=== PATIENT | female | born 1955 | race Two or more races ===

== ENCOUNTER 2025-05-21 10:00 | Outpatient (AMB) | payer MEDICARE, SELFPAY ==
--- NOTE | 2025-05-21 10:39 | MHC.OFFVIS ---
Vital Signs 05/21/25 10:43 Height 5 ft 4 in Weight 317 lb 6 oz BMI 54.5 BP 106/72 Blood Pressure Location Rt brachial Position Sitting Pulse 96 Pulse Source Pulse Oximeter Pulse Oximetry (%) 94 Oxygen Delivery Method Room Air Intake Visit Reasons: Obstructive sleep apnea Allergies No Known Allergies Allergy (Verified 05/21/25 10:48) HPI HPI Obstructive sleep apnea: Details: Macy is a pleasant 69-year-old female with underlying obstructive sleep apnea, pulmonary hypertension and HTN. She was referred by PCP for management of obstructive sleep apnea. She was diagnosed over 10 years ago and has been using a CPAP machine from [employer] since then, benefitting from use. Her last sleep study was in 2013, which revealed moderate SONJA with nocturnal hypoxemia. She recently received a new machine about two years ago and has been working effectivelyx. She has a history of pulmonary hypertension, although her last echocardiogram in 2021 showed normal pressures. She is under the care of Dr. Correa at [facility] but has not had a recent appointment. 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 [facility] Social History (Updated 05/21/25 @ 10:47 by Bhavana Dominguez [facility]) Patient Tobacco Use Status: Never used Tobacco Review of Systems Const Denies chills, Denies excessive sweating, Denies fever(s), Denies headache(s) and Denies night sweats Eyes Denies dry eyes, Denies irritation and Denies itchy eyes ENT Reports Normal hearing present, Denies headache(s), Denies nasal congestion, Denies nasal discharge, Denies post nasal drip and Denies sore throat Card Denies chest pain, Denies chest pain at rest, Denies chest pain with activity, Denies claudication, Denies leg edema, Denies dyspnea, Denies dyspnea on exertion, Denies orthopnea and Denies paroxysmal nocturnal dyspnea Resp Denies chest congestion, Denies cough, Denies excessive phlegm production, Denies pain on inspiration, Denies pain with cough, Denies dyspnea, Denies dyspnea on exertion, Denies stridor and Denies wheezing Musc Denies myalgias Neuro Reports Normal hearing present and Denies headache(s) Endo Denies excessive sweating Ambrosio/Lymph Denies lymphadenopathy Aller/Immun Denies itchy eyes, Denies seasonal rhinorrhea and Denies wheezing Physical Exam Vital Signs: Last Vital Signs Pulse 96 05/21/25 10:43 BP 106/72 05/21/25 10:43 Pulse Ox 94 05/21/25 10:43 Oxygen Delivery Method Room Air 05/21/25 10:43 BMI result Body Mass Index 54.5 Const General: cooperative, healthy appearing, comfortable, no acute distress, well developed and alert Nutritional Appearance: obese Orientation/consciousness: patient oriented x3 Limitations: no limitations HEENT Head: Yes normal to inspection, Yes normocephalic and Yes atraumatic Ears: hearing grossly normal bilaterally and external ears normal Eyes General: appearance normal, both eyes and all related structures Eyelids: Yes eyelids normal Sclerae: sclerae normal EOM: EOMs intact bilaterally Neck Neck: Yes normal visual inspection and Yes no lymphadenopathy Lymphatic: no lymphadenopathy noted Chest Chest palpation & inspection: normal inspection of the chest Resp Effort & Inspection: normal respiratory effort, able to speak in complete sentences, no audible wheezes, no cough, no stridor, not tachypneic, no tripod positioning and no use of accessory muscles Auscultation: clear to auscultation bilaterally Cardio Jugular venous distension: no JVD Rate: regular rate Rhythm: regular rhythm Skin Other: warm, dry General skin exam: no rashes or lesions noted Neuro General: patient oriented x3 Cranial nerves: Yes Normal hearing present Cognition (Neuro): normal cognition Gait exam (Neuro): Normal gait present Extrem General: Yes normal to inspection, Yes capillary refill normal, Yes no clubbing, cyanosis or edema and Yes no pedal edema Psych Appearance: grossly normal and well kempt Speech and movement: Normal speech and movement present and Clear speech present Affect: normal affect Attitude: cooperative Thought process: Normal thought process present Thought content: Normal thought content present Insight: Good insight present (Psych) Judgement: Good judgement present (Psych) Assessment & Plan Assessment & Plan (1) Obstructive sleep apnea: Code(s): G47.33 - Obstructive sleep apnea (adult) (pediatric) Category: Medical Plan Macy presents for management of SONJA and importance of continuing CPAP therapy. She has been benefitting from use with CPAP pressure 11 cmH20. If she has symptoms suggestive of SONJA may need to send for inlab titration study to ensure optimal pressures. At this time, will send supply order to [facility] to obtain compliance report. For the question of pulmonary hypertension, the patient is advised to follow up with cardiology for an updated echocardiogram and will obtain results when available. The patient is encouraged to contact Dr. Correa for a cardiology appointment. In regards to possible RAD, the patient should continue using albuterol as needed and monitor symptoms. Will hold off on PFT at this time. All questions were answered and patient is in agreement of plan. Will follow up in 3 months or sooner if needed. Coding Level of Care Code New Pt Level 3 (41615) Diagnoses Obstructive sleep apnea G47.33
[2025-05-21 10:43] VITALS: BP 106/72; PULSE 96; O2SAT 94; BMI 54.5
--- OUTSIDE RECORDS SUMMARY | 2025-05-21 11:02 | XMS_ITS | Clinical Summary ---
Author Organization [address] Address [address] [place] [id number] Phone Care Team Providers Care Geophysical Data Technician Name Role Phone Santiago Love Primary Care Provider [phone] Allergies Active Allergy Reactions Criticality Noted Date Comments Other 06/16/2020 Seasonal Allergies Medications furosemide (LASIX) 40 mg tablet Take 1 Tablet by mouth See Admin Instructions. 3 Active medical supply, miscellaneous (MISCELLANEOUS MEDICAL SUPPLY MISC) CPAP Historical (HISTORICAL CPAP) 3 Active ascorbic acid (VITAMIN C) 250 mg tablet Take 250 mg by mouth. 2 Active cyanocobalamin (VITAMIN B-12) 1,000 mcg tablet Take 1,000 mcg by mouth. 2 Active folic acid (FOLVITE) 1 mg tablet Take 1 mg by mouth. 2 Active fluticasone propionate (FLONASE) 50 mcg/actuation nasal spray 1 [place] by Nasal route daily. 2 Active meclizine (ANTIVERT) 25 mg tablet Take 1 tablet by mouth as needed. Active levothyroxine (SYNTHROID, LEVOTHROID) 50 mcg tablet Take 1 Tablet by mouth daily for 360 days. 4 06/27/20 25 Active cholecalciferol (VITAMIN D-3) 25 mcg (1,000 unit) tablet Take 1 Tablet by mouth daily. 4 Active albuterol HFA (PROAIR HFA ; PROVENTIL HFA ; VENTOLIN HFA) 90 mcg/actuation inhaler Inhale 2 puffs by mouth every 4 (four) hours if needed for wheezing or shortness of breath. 6.7 g 5 Active loratadine (CLARITIN) 10 mg tablet Take 1 tablet (10 mg total) by mouth 1 (one) time each day. 90 tablet 3 5 Active sertraline (ZOLOFT) 100 mg tablet Take 1 tablet (100 mg total) by mouth 1 (one) time each day. 30 each 5 5 Active Active Problems Problem Noted Date Diagnosed Date Morbid obesity with BMI of 5 0.0-59.9, adult ([facility] V24, [facility] V28) 07/08/2024 Osteopenia 04/01/2022 Depression with anxiety 03/11/2020 Assessment & Plan (03/14/2025 4:56 PM EDT): Orders: Ambulatory referral to Pulmonology; Future Will increase Zoloft t 100 mg daily. Discussed side effects Osteoarthritis of knees, bilateral 08/20/2019 Prediabetes 12/15/2018 Assessment & Plan (03/14/2025 4:56 PM EDT): Orders: Hemoglobin A1c; Future Subclinical hypothyroidism 12/15/2018 Assessment & Plan (03/14/2025 4:56 PM EDT): Orders: Thyroid stimulating hormone with reflex to free t4 and free t3; Future Continue levothyroxine 50 mcg daily Hyperlipidemia 02/03/2017 Overview (08/23/2024): Total cholesterol 218, LDL cholesterol 116, 11/25/2016. Assessment & Plan (03/14/2025 4:56 PM EDT): Orders: Lipid panel with reflex to direct LDL; Future Not on statin medication Tinnitus 12/26/2014 Vitamin B12 deficiency 12/26/2014 Assessment & Plan (03/14/2025 4:56 PM EDT): Orders: Vitamin B12; Future Currently on supplement Fibromyalgia 09/26/2014 Assessment & Plan (03/14/2025 4:56 PM EDT): She does complain of upper and lower extremity pain and weakness. She is not interested in gabapentin, Lyrica at this moment Pulmonary hypertension ([facility] V24, [facility] V28 ) 08/09/2014 Overview (08/23/2024): Last Assessment & Plan: Followed by Dr. Pickering with [facility]. Continue Lasix at current dose. Continue CPAP therapy. Assessment & Plan (03/14/2025 4:56 PM EDT): Pain in joint, multiple sites 07/08/2014 Sleep apnea syndrome 07/08/2014 Tricuspid valve insufficiency 07/08/2014 Overview (08/23/2024): 3+ on spring (Dr. Correa) Last Assessment & Plan: Following up with Dr. Montenegro, she states she had already met with him not too long ago, completing some test and will be reevaluated by him. She has no new or concerning symptoms. Today she is feeling a little under the weather as mentioned above may be fighting some mild fevers which she will take at home COVID test for. Encounters Date Type Department Care Team Description 05/07/2025 10:00 AM EDT Ancillary Procedure Pulmonol - [place] [address] [place] [phone] Wheezing (Primary Dx) 04/08/2025 Telephone Adult Medicine [facility] [address] [place] [phone] Santiago Love PA 03/28/2025 Telephone [facility] [address] [place] [address] Santiago Love PA Medical Records 03/28/2025 Telephone [facility] [address] [place] [phone] Santiago Love PA 03/22/2025 Telephone Adult Medicine [facility] [address] [place] [phone] Santiago Love PA 03/14/2025 11:00 AM EDT Office Visit Adult Medicine [address] [phone] Iveth Izquierdo PA Encounter for initial annual wellness visit (AWV) in Medicare patient (Primary Dx); Breast cancer screening by mammogram; Subclinical hypothyroidism; Mixed hyperlipidemia; Prediabetes; Vitamin B12 deficiency; Vitamin D deficiency; History of iron deficiency; Hypomagnesemia; Pulmonary hypertension (CMS/HCC V24, CMS/HCC V28); SONJA (obstructive sleep apnea); Anxiety and depression; Fibromyalgia; Wheezing 03/11/2025 Telephone Adult Medicine [address] [phone] Santiago Love PA MyChart Appointment from Last 3 Months Immunizations Name Administration Dates Next Due Influenza Quadravalent, MDCK , 0.5ml, with preservative (Flucelvax) 6mo and older 08/22/2017 Influenza trivalent, 0.5mL ( Fluzone High-dose) 65yo and older 01/17/2024 Influenza trivalent, with pr eservative (Fluzone; Afluria) 6mo and older 08/16/2020 Pneumococcal conjugate 13 va lent (Prevnar 13, PCV13) 2mo and older 04/06/2022 Pneumococcal conjugate 20 va lent (Prevnar 20, PCV 20) 2mo and older 01/17/2024 Tdap Tetanus diptheria acell ular pertussis (Boostrix; Adacel) 7yo and older 06/20/2019 Zoster Live 09/07/2017 Surgical History Surgery Date Site/Laterality Comments GASTRIC BYPASS 11/21/2004 PROCEDURE: ME GASTRIC RSTCV W/BYP W/SM INT RCNSTJ LIMIT ABSRPJ; COMMENT: gastric bypass SECTION 11/21/1981 PROCEDURE: HISTORICAL APPENDECTOMY 11/21/1979 PROCEDURE: HISTORICAL APPENDECTOMY OTHER SURGICAL HISTORY PROCEDURE: ME DILATION & CURETTAGE DX&/THER NONOBSTETRIC; COMMENT: x 2 BREAST LUMPECTOMY PROCEDURE: HISTORICAL BREAST LUMPECTOMY; COMMENT: left breast (1990s); benign CHOLECYSTECTOMY PROCEDURE: HISTORICAL CHOLECYSTECTOMY COLONOSCOPY 02/16/2024 PROCEDURE: HISTORICAL COLONOSCOPY; COMMENT: adryanlu 1 polyp 5 yrs Medical History Medical History Date Comments Heart murmur DX:Heart murmur; COMMENT: [facility] Vitamin deficiency DX:Vitamin de ficiency Morbid obesity with BMI of 5 0.0-59.9, adult ([facility] V24, CMS/HCC V28) 07/08/2014 DX:Morbid obesity wit h BMI of 50.0-59.9, adult ([facility]) Tricuspid valve regurgitation 07/08/2014 DX :Tricuspid valve regurgitation; COMMENT: 3+ on echo Sleep apnea syndrome 07/08/2014 DX:Sleep ap rakesh syndrome Family History Medical History Relation Name Comments Diabetes Brother x2 brothers Other: Other Father Diabetes Maternal Grandmother Arthritis Mother Glaucoma, hyper tension Other: Other Mother , 2015 Other: some type of cancer Uncle Relation Name Status Comments Brother Alive x 4 Daughter Alive Father Maternal Grandfather Maternal Grandmother Mother Paternal Grandfather Paternal Grandmother Sister Alive x 2 Uncle Social History Tobacco Use Types Packs/Day Years Used Date Smoking Tobacco: Never Smokeless Tobacco: Never Tobacco Cessation:Counseling Given: Not Answered Alcohol Use Standard Drinks/Week Comments No 0 (1 standard drink = 0.6 oz pur e alcohol) Housing Instability Answer Date Recorde d Are you worried that in the next 2 months you may not have stable housing? No 03/14/2025 Food Access & Nutrition Answer Date Rec orded Do you have access to a vari ety of food including fruits and vegetables? Yes 03/14/2025 Access to Healthcare Answer Date Record ed Within the last 3 months, ho w many times did you visit the emergency department for your medical care? 0 03/14/2025 Health Literacy Answer Date Recorded How often do you need to hav e someone help you when you read instructions, pamphlets, or other written material from your doctor or pharmacy? Never 03/14/2025 Caregiver: How often do you need to have someone help you when you read instructions, pamphlets, or other written material from your doctor or pharmacy? Not on file 03/14/2025 Financial Risk Answer Date Recorded How hard is it for you to pa y for the very basics like food, housing, medical care, and air conditioning / heating? Not very hard 03/14/2025 Transportation Answer Date Recorded Has the lack of transportati on kept you from meetings, work, or from getting things needed for daily living? No Has the lack of transportati on kept you from medical appointments or from getting medications? No 03/14/2025 Social Isolation Answer Date Recorded How often do you feel lonely or isolated from th ose around you? Never 03/14/2025 Food Risk Answer Date Recorded Within the past 12 months we worried whether our food would run out before we got money to buy more. Never true 03/14/2025 Within the past 12 months th e food we bought just didn't last and we didn't have money to get more. Never true 03/14/2025 Dependent Care Answer Date Recorded Do you need help finding or paying for care for your loved ones. For example, children's attendant or elderly care for an older adult? No 03/14/2025 Education Answer Date Recorded Do you think completing more education or training, like finishing a GED, going to college, or learning a trade, would be helpful for you? No 03/14/2025 Employment and Income Answer Date Recor ded During the last four weeks, have you been actively looking for work? No 03/14/2025 Living Situation Answer Date Recorded What is your living situation? 0 03/14/2025 Comments Unknown Sex and Gender Information Value Date Recorded Sex Assigned at Female 11/28/2024 1:02 PM EST Legal Sex Female 11:36 PM EST Gender Identity Female 11/28/2024 1:02 PM EST Sexual Orientation Not on file Obstetrics History Last Filed Vital Signs Vital Sign Reading Time Taken Comments Blood Pressure 130/70 03/14/2025 10:53 AM EDT Pulse 94 03/14/2025 11:45 AM EDT Temperature 35.2 C (95.4 F) 03/14/2025 10:53 AM EDT Respiratory Rate 15 03/14/2025 10:53 AM EDT Oxygen Saturation 97% 03/14/2025 10:53 AM EDT Inhaled Oxygen Concentration - - Weight 144 kg (316 lb 6.4 oz) 03/14/2025 10:53 A M EDT Height 162.6 cm (5' 4 ) 03/14/2025 10:53 AM EDT Body Mass Index 54.31 03/14/2025 10:53 AM EDT Plan of Treatment Upcoming Encounters Date Type Department Care Team (Late st Contact Info) Description 06/13/2025 9:30 AM EDT Office Visit Adult Medicine [facility] [address] [place], [place] [phone] Iveth Izquierdo PA [address] [place], [place] Health Maintenance Due Date Last Done Comments Breast Cancer Screening 1955 COVID-19 Vaccine ( season) 2025 09/08/2024, 09/17/2022, 11/12/2021, Additional history exists Hypertension/CHF/CAD Annual BMP Blood Test 07/02/2025 07/02/2024, 07/02/2024 Influenza Vaccine (Season Ended) 2025 01/17/2024, 09/17/2022, 11/12/2021, Additional history exists Depression Screening 03/14/2026 03/14/2025 Falls Risk Assessment 03/14/2026 03/14/2025, 025 Medicare Annual Wellness Visit 03/14/2026 03/14/2025 Social Influencers of Health Screening 03/14/2026 03/14/2025 Colorectal Cancer Screening: Colonoscopy 02/15/2029 02/16/2024 DTaP,Tdap,and Td Vaccines (2 - Td or Tdap) 06/20/2029 06/20/2019 Cholesterol Screening (Lipid Panel) 07/02/2029 07/02/2024, 07/02/2024 Osteoporosis Screening (Bone Density Screening) 04/01/2032 04/01/2022 Hepatitis C Screening Completed 08/14/2014 Zoster Vaccines Completed 04/17/2023, 10/22, 09/07/2017 Pneumococcal Vaccine: 50+ Years Completed 01/17/2024, 04/06/2022 RSV Immunization Adult Patients Completed 09/08/2024 HIB Vaccines Aged Out No longer eligi ble based on patient's age to complete this topic HPV Vaccines Aged Out No longer eligi ble based on patient's age to complete this topic Hepatitis A Vaccines Aged Out No long er eligible based on patient's age to complete this topic Hepatitis B Vaccines Aged Out No long er eligible based on patient's age to complete this topic IPV Vaccines Aged Out No longer eligi ble based on patient's age to complete this topic MMR Vaccines Aged Out No longer eligi ble based on patient's age to complete this topic Meningococcal ACWY Vaccine Aged Out N o longer eligible based on patient's age to complete this topic Meningococcal B Vaccine Aged Out No l onger eligible based on patient's age to complete this topic RSV Immunization Patients Under 20 months Aged Out No longer eligible based on patient's age to complete this topic Varicella Vaccines Aged Out No longer eligible based on patient's age to complete this topic Procedures Procedure Name Priority Date/Time Associated Diagnosis Comments PULMONARY FUNCTION TESTING Routine 05/07/2025 10:21 AM EDT Wheezing ANNUAL BMP BLOOD TEST Routine 07/02/2024 LIPID PANEL Routine 07/02/2024 COLONOSCOPY Routine 02/16/2024 DXA BONE DENSITY STUDY 1+ SITS AXIAL SKEL Routine 04/01/2022 2:36 PM EDT Encounter for screening for osteoporosis HEPATITIS C SCREENING Routine 08/14/2014 from Last 3 Months or Most Recently Relevant to Health Maintenance Results * Pulmonary function testing: Spirometry with Bronchodilator, Carbon Monoxide Diffusing Capacity, Helium Dilution Lung Volumes, Bronchial Challenge with Methacholine (05/07/2025 10:21 AM EDT) Impressions Soniya Quintero MD - 05/07/2025 10:21 AM EDT 05/07/2025 Spirometry FEV1 is 96% predicted, FVC is 84% predicted, FEV1/FVC ratio is normal, no improvement in FEV1 post bronchodilators Lung volume TLC is 94% predicted, RV/TLC is 105% predicted Diffusion capacity DLCO is 82% predicted, DLCO/VA is 115% predicted Summary, this is a normal PFT Iveth RILEY PFT ORDERABLES Final Result * Annual BMP Blood Test (07/02/2024) [facility] Annual BMP Blood Test Abstracted Result [facility] Historical Provider HEALTH MAINTENANCE Final Result * Lipid panel (07/02/2024) [facility] LDL/HDL Ratio 3 0 - 4 Triglycerides 107 0 - 150 mg/dL Cholesterol 189 0 - 200 mg/dL HDL 75 >=40 mg/dL LDL Cholesterol 93 0 - 100 mg/dL Blood Venous blood specimen / Unknown Result [facility] Historical Provider LAB BLOOD ORDERABLES Carlita l Result * Colonoscopy (02/16/2024) [facility] Colonoscopy No interpretation , Abstracted Comment:Repeat in 5 years. Anatomical Region Laterality Modality Other Result [facility] Provider HEALTH MAINTENANCE Final Result * DXA BONE DENSITY STUDY 1+ SITS AXIAL SKEL (04/01/2022 2:36 PM EDT) Anatomical Region Laterality Modality Bone Densitometr y 02/03/2022 12:2 2 PM EDT Narrative 04/01/2022 4:53 PM EDT BONE DENSITY Lumbar Spine T-score is -0.3 (SD relative to 20-29 y/o adult) Z-score is +1.6 (SD relative to age matched peers) This is normal by criteria defined by the WHO. Left Hip T-score is -1.2 Z-score is +0.1 This is consistent with osteopenia by criteria defined by the WHO. . Impression: Based on the World Health Organization criteria, Macy Castillo should be classified as having osteopenia. This patient has a 7% risk of major osteoporotic fracture and a 0.5% risk of hip fracture over the next 10 years. (World Health Organization Fracture Risk Assessment) [facility] Department of Internal Medicine recommends using National Osteoporosis Foundation (NOF) guidelines in treatment decisions related to osteoporosis. NOF guidelines suggest considering treatment for postmenopausal women and men aged 50 or older presenting with the following: History of hip or vertebral fracture. T-score less than or equal to -2.5 (DXA) at the femoral neck, total hip, or spine, after appropriate evaluation to exclude secondary causes. Low bone mass (T-score between -1.0 and -2.5 at the femoral neck or spine) AND a 10-year probability of a hip fracture greater than or equal to 3% OR a 10-year probability of a major osteoporosis-related fracture greater than or equal to 20% based on the [place]-adapted WHO algorithm Please note that all treatment decisions require clinical judgment and consideration of individual patient factors, including patient preferences, co-morbidities, previous drug use, risk factors not captured in the FRAX model (e.g., frailty, falls, vitamin D deficiency, increased bone turnover, interval significant decline in bone density) and possible under- or over-estimation of fracture risk by FRAX. Procedure Note Soni Curtis MD - 11/09/2022 BONE DENSITY Lumbar Spine T-score is -0.3 (SD relative to 20-29 y/o adult) Z-score is +1.6 (SD relative to age matched peers) This is normal by criteria defined by the WHO. Left Hip T-score is -1.2 Z-score is +0.1 This is consistent with osteopenia by criteria defined by the WHO. . Impression: Based on the World Health Organization criteria, Macy motabe classified as having osteopenia. This patient has a 7% risk of majorosteoporotic fracture and a 0.5% risk of hip fracture over the next 10years. (World Health Organization Fracture Risk Assessment) [facility] Department of Internal Medicine recommendsusing National Osteoporosis Foundation (NOF) guidelines in treatmentdecisions related to osteoporosis. NOF guidelines suggest consideringtreatment for postmenopausal women and men aged 50 or older presentingwith the following: History of hip or vertebral fracture. T-score less than or equal to -2.5 (DXA) at the femoral neck, total hip,or spine, after appropriate evaluation to exclude secondary causes. Low bone mass (T-score between -1.0 and -2.5 at the femoral neck or spine)AND a 10-year probability of a hip fracture greater than or equal to 3% ORa 10-year probability of a major osteoporosis-related fracture greaterthan or equal to 20% based on the [place]-adapted WHO algorithm Please note that all treatment decisions require clinical judgment andconsideration of individual patient factors, including patientpreferences, co-morbidities, previous drug use, risk factors not capturedin the FRAX model (e.g., frailty, falls, vitamin D deficiency, increasedbone turnover, interval significant decline in bone density) and possibleunder- or over-estimation of fracture risk by FRAX. Santiago RILEY IMG DXA PROCEDURES Final Result * Hepatitis C Screening (08/14/2014) [facility] Hepatitis C Screening Abstracted Historical Provider MD HEALTH MAINTENANCE Final Result from Last 3 Months or Most Recently Relevant to Health Maintenance Insurance [employer] MEDICARE Care Teams Geophysical Data Technician Relationship Specialty Start Date End Date Santiago Love PA [address] [place] [address] PCP - General Internal Medicine 05/20/21
== END 2025-05-21 11:17 | disposition home or self-care (01) ==
LOC: HO.HPSW 10:01
PROVIDERS: PCP Physician Assistant Medical; Visit Provider Nurse Practitioner Family
DX: G47.33 Obstructive sleep apnea (adult) (pediatric) (principal)
CPT/HCPCS: 99203

== ENCOUNTER → 2025-05-21 10:00 | Outpatient (BNVA) | payer MEDICARE, SELFPAY | PROVIDERS: PCP Physician Assistant Medical; Visit Provider Nurse Practitioner Family | DX: G47.33 Obstructive sleep apnea (adult) (pediatric) (principal); E66.9 Obesity, unspecified; Z99.89 Dependence on other enabling machines and devices | CPT/HCPCS: 99202 ==

== ENCOUNTER 2025-07-26 09:52 | Outpatient (AMB) | payer MEDICARE, SELFPAY ==
[2025-07-26 10:08] VITALS: BP 110/68; PULSE 99; O2SAT 93; BMI 54.8
--- NOTE | 2025-07-26 10:08 | MHC.OFFVIS ---
Vital Signs 07/26/25 10:08 Height 5 ft 4 in Weight 319 lb 4 oz BMI 54.8 BP 110/68 Blood Pressure Location Rt radial Position Sitting Pulse 99 Pulse Source Pulse Oximeter Pulse Oximetry (%) 93 Oxygen Delivery Method Room Air Intake Visit Reasons: Obstructive sleep apnea Allergies No Known Allergies Allergy (Verified 07/26/25 10:11) HPI HPI Obstructive sleep apnea: Details: Macy is a pleasant 70-year-old female with underlying obstructive sleep apnea, pulmonary hypertension and HTN. She was initially referred by PCP for management of obstructive sleep apnea. She was diagnosed over 10 years ago and has been using a CPAP machine from [facility] since then, reports current machine is about 2-3 years old. Her last sleep study was in 2013, which revealed moderate SONJA with nocturnal hypoxemia. She continues to report significant daytime fatigue despite consistent use of CPAP questioning appropriate pressures. She has a history of pulmonary hypertension, although her last echocardiogram in 2021 showed normal pressures. At this time she reports good control of respiratory symptoms using albuterol infrequently however does report intermittent dyspnea on exertion. She reports prior h/o possible RAD with PFT performed this year at [facility]. No report available. [facility] Social History Patient Tobacco Use Status: Never used Tobacco Review of Systems Const Denies chills, Denies excessive sweating, Denies fever(s), Denies headache(s) and Denies night sweats Eyes Denies dry eyes, Denies irritation and Denies itchy eyes ENT Reports Normal hearing present, Denies headache(s), Denies nasal congestion, Denies nasal discharge, Denies post nasal drip and Denies sore throat Card Denies chest pain, Denies chest pain at rest, Denies chest pain with activity, Denies claudication, Denies leg edema, Denies orthopnea and Denies paroxysmal nocturnal dyspnea Resp Denies chest congestion, Denies cough, Denies excessive phlegm production, Denies pain on inspiration, Denies pain with cough, Denies stridor and Denies wheezing Musc Denies myalgias Neuro Reports Normal hearing present and Denies headache(s) Endo Denies excessive sweating Ambrosio/Lymph Denies lymphadenopathy Aller/Immun Denies itchy eyes, Denies seasonal rhinorrhea and Denies wheezing Physical Exam Vital Signs: Last Vital Signs Pulse 99 07/26/25 10:08 BP 110/68 07/26/25 10:08 Pulse Ox 93 07/26/25 10:08 Oxygen Delivery Method Room Air 07/26/25 10:08 BMI result Body Mass Index 54.8 Const General: cooperative, healthy appearing, comfortable, no acute distress, well developed and alert Nutritional Appearance: obese Orientation/consciousness: patient oriented x3 Limitations: no limitations HEENT Head: Yes normal to inspection, Yes normocephalic and Yes atraumatic Ears: hearing grossly normal bilaterally and external ears normal Eyes General: appearance normal, both eyes and all related structures Eyelids: Yes eyelids normal Sclerae: sclerae normal EOM: EOMs intact bilaterally Neck Neck: Yes normal visual inspection and Yes no lymphadenopathy Lymphatic: no lymphadenopathy noted Chest Chest palpation & inspection: normal inspection of the chest Resp Other: diminished lung sounds Effort & Inspection: normal respiratory effort, able to speak in complete sentences, no audible wheezes, no cough, no stridor, not tachypneic, no tripod positioning and no use of accessory muscles Cardio Jugular venous distension: no JVD Rate: regular rate Rhythm: regular rhythm Skin Other: warm, dry General skin exam: no rashes or lesions noted Neuro General: patient oriented x3 Cranial nerves: Yes Normal hearing present Cognition (Neuro): normal cognition Gait exam (Neuro): Normal gait present Extrem General: Yes normal to inspection, Yes capillary refill normal, Yes no clubbing, cyanosis or edema and Yes no pedal edema Psych Appearance: grossly normal and well kempt Speech and movement: Normal speech and movement present and Clear speech present Affect: normal affect Attitude: cooperative Thought process: Normal thought process present Thought content: Normal thought content present Insight: Good insight present (Psych) Judgement: Good judgement present (Psych) Assessment & Plan Assessment & Plan (1) Obstructive sleep apnea: Code(s): G47.33 - Obstructive sleep apnea (adult) (pediatric) Category: Medical (2) Dyspnea on exertion: Code(s): R06.09 - Other forms of dyspnea Category: Medical (3) Daytime somnolence: Code(s): R40.0 - Somnolence Category: Medical Plan Macy presents for management of SONJA and discussed importance of continuing CPAP therapy. She previously reported benefit from CPAP use however has more recently noted increased daytime fatigue. Will send for inlab study with the plan for titration to ensure optimal pressures. Will reach out to [employer] to obtain access to CPAP. Will send for CXR for ongoing dyspnea and obtain prior PFT reportedly performed at [facility] this year. All questions were answered and patient is in agreement of plan. Will follow up in 3 months or sooner if needed. Orders: Orders XR chest 2V Today R06.09 - Other forms of dyspnea RT PSG in-lab sleep study Today R40.0 - Somnolence Coding Level of Care Code Est Pt Level 4 (83633) Diagnoses Obstructive sleep apnea G47.33 Dyspnea on exertion R06.09 Daytime somnolence R40.0
--- OUTSIDE RECORDS SUMMARY | 2025-07-26 10:38 | XMS_ITS | Clinical Summary ---
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 03/30/20 23 Active medical supply, miscellaneous (MISCELLANEOUS MEDICAL SUPPLY MISC) CPAP Historical (HISTORICAL CPAP) 03/30/20 23 Active ascorbic acid (VITAMIN C) 250 mg tablet Take 250 mg by mouth. 03/24/20 22 Active cyanocobalamin (VITAMIN B-12) 1,000 mcg tablet Take 1,000 mcg by mouth. 03/24/20 22 Active folic acid (FOLVITE) 1 mg tablet Take 1 mg by mouth. 03/24/20 22 Active fluticasone propionate (FLONASE) 50 mcg/actuation nasal spray 1 [place] by Nasal route daily. 04/06/20 22 Active meclizine (ANTIVERT) 25 mg tablet Take 1 tablet by mouth as needed. Active cholecalciferol (VITAMIN D-3) 25 mcg (1,000 unit) tablet Take 1 Tablet by mouth daily. 07/02/20 24 Active albuterol HFA (PROAIR HFA ; PROVENTIL HFA ; VENTOLIN HFA) 90 mcg/actuation inhaler Inhale 2 puffs by mouth every 4 (four) hours if needed for wheezing or shortness of breath. 6.7 g 03/14/20 25 Active loratadine (CLARITIN) 10 mg tablet Take 1 tablet (10 mg total) by mouth 1 (one) time each day. 90 tablet 3 03/14/20 25 Active sertraline (ZOLOFT) 100 mg tablet Take 1.5 tablets (150 mg total) by mouth 1 (one) time each day. 135 each 1 06/13/20 25 Active levothyroxine (SYNTHROID, LEVOTHROID) 50 mcg tablet Take 1 tablet (50 mcg total) by mouth 1 (one) time each day before breakfast. Active levothyroxine (SYNTHROID, LEVOTHROID) 50 mcg tablet Take 1 tablet (50 mcg total) by mouth 1 (one) time each day before breakfast. 025 Discontin ued(Dose adjustmen t) levothyroxine (SYNTHROID, LEVOTHROID) 75 mcg tablet Take 1 tablet (75 mcg total) by mouth 1 (one) time each day. 30 each 5 06/27/20 25 025 Discontin ued(Enter ed in Error) Active Problems Problem Noted Date Diagnosed Date Morbid obesity with BMI of 5 0.0-59.9, adult ([facility] V24, [facility] V28) 07/08/2024 Osteopenia 04/01/2022 Depression with anxiety [...] gabapentin, Lyrica at this moment Pulmonary hypertension (CMS/HCC V24, CMS/HCC V28 ) 08/09/2014 Overview (08/23/2024): Last Assessment & Plan: Followed by Dr. Pickering with [facility]. Continue Lasix at current dose. Continue CPAP [...] Encounters Date Type Department Care Team Description 07/17/2025 7:54 AM EDT - 07/17/2025 11:59 PM EDT [facility] [address] [phone] Breast cancer screening by mammogram Discharge Disposition: Home or Self Care 07/10/2025 12:20 PM EDT - 07/10/2025 11:59 PM EDT Hospital Encounter Radiology Department - [address] [phone] Abnormal finding present on diagnostic imaging of uterus Discharge Disposition: Home or Self Care 07/01/2025 1:09 PM EDT - 07/01/2025 11:59 PM EDT Hospital Encounter CT Scan - [address] [phone] Abnormal ultrasound of liver; Diaphragmatic eventration Discharge Disposition: Home or Self Care 06/28/2025 Telephone Adult Medicine [address] [phone] Iveth Izquierdo PA 06/25/2025 8:23 AM EDT - 06/25/2025 11:59 PM EDT Hospital Encounter Radiology Department - [address] [phone] Diaphragmatic eventration Discharge Disposition: Home or Self Care 06/13/2025 9:52 AM EDT - 06/13/2025 11:59 PM EDT Hospital Encounter XRAY - [address] [phone] Wheezing Discharge Disposition: Home or Self Care 06/13/2025 9:30 AM EDT Office Visit Adult Medicine [address] [phone] Iveth Izquierdo PA Mixed hyperlipidemia (Primary Dx); Prediabetes; Subclinical hypothyroidism; Vitamin B12 deficiency; Vitamin D deficiency; History of iron deficiency; Hypomagnesemia; Pulmonary hypertension (CMS/HCC V24, CMS/HCC V28); SONJA (obstructive sleep apnea); Anxiety and depression; Fibromyalgia; Wheezing; Morbid obesity with BMI of 50.0-59.9, adult (CMS/HCC V24, CMS/HCC V28) 05/07/2025 10:00 AM EDT Ancillary Procedure Pulmonolgy - [place] [address] [facility] [address] [place] [address] Wheezing (Primary Dx) from Last 3 Months Immunizations Name Administration [...] Date Site/Laterality Comments GASTRIC BYPASS 11/21/2004 PROCEDURE: LA GASTRIC RSTCV W/BYP W/SM INT RCNSTJ LIMIT ABSRPJ; COMMENT: gastric bypass SECTION 11/21/1981 PROCEDURE: HISTORICAL APPENDECTOMY 11/21/1979 PROCEDURE: HISTORICAL APPENDECTOMY OTHER SURGICAL HISTORY PROCEDURE: LA DILATION & CURETTAGE DX&/THER NONOBSTETRIC; COMMENT: x 2 BREAST LUMPECTOMY PROCEDURE: HISTORICAL BREAST LUMPECTOMY; COMMENT: left breast (); benign CHOLECYSTECTOMY PROCEDURE: HISTORICAL CHOLECYSTECTOMY COLONOSCOPY 02/16/2024 PROCEDURE: HISTORICAL COLONOSCOPY; COMMENT: adryanlu 1 polyp 5 yrs Medical History Medical History Date Comments Heart murmur DX:Heart murmur; COMMENT: [facility] Vitamin deficiency DX:Vitamin de ficiency Morbid obesity with BMI of 5 0.0-59.9, adult ([facility] V24, [facility] V28) 07/08/2014 DX:Morbid obesity wit h BMI of 50.0-59.9, adult ([facility]) Tricuspid valve regurgitation 07/08/2014 DX :Tricuspid valve regurgitation; COMMENT: 3+ on echo Sleep apnea syndrome 07/08/2014 DX:Sleep ap rakesh syndrome Family History Medical History Relation Name Comments Diabetes Brother x2 brothers Other: Other Father Diabetes Maternal Grandmother Arthritis Mother Glaucoma, hyper tension Other: Other Mother , 2016 Other: some type of cancer Uncle Relation [...] care for your loved ones. For example, child and adolescent therapist or elderly care for an older adult? [...] is your living situation? 0 03/14/2025 Comments No Sex and Gender Information Value Date Recorded Sex Assigned at Female 11/28/2024 1:02 PM EST Legal Sex Female 11:36 PM EST Gender Identity Female 11/28/2024 1:02 PM EST Sexual Orientation Not on file Obstetrics History Para Term AB IAB SAB Ectopic Multiple Livin g Live Births 1 Last Filed Vital Signs Vital Sign Reading Time Taken Comments Blood Pressure 118/82 06/13/2025 9:12 AM EDT Pulse 96 06/13/2025 9:12 AM EDT Temperature 36.6 C (97.8 F) 06/13/2025 9:12 AM EDT Respiratory Rate 16 06/13/2025 9:12 AM EDT Oxygen Saturation 97% 06/13/2025 9:12 AM EDT Inhaled Oxygen Concentration - - Weight 144 kg (318 lb) 07/17/2025 7:59 AM EDT Height 162.6 cm (5' 4 ) 07/17/2025 7:59 AM EDT Body Mass Index 54.58 07/17/2025 7:59 AM EDT Plan of Treatment Upcoming Encounters Date Type Department Care Team (Late st Contact Info) Description 12/20/2025 10:30 AM EST Office Visit Adult Medicine [address] [phone] Santiago Love PA [address] [place] [phone] Health Maintenance Due Date Last Done Comments COVID-19 Vaccine ( season) 2025 09/08/2024, 09/17/2022, 11/12/2021, Additional history exists Influenza Vaccine (#1) 2025 , 09/17/2022, 11/12/2021, Additional history exists Falls Risk Assessment 03/14/2026 03/14/2025, 025 Medicare Annual Wellness Visit 03/14/2026 03/14/2025 Social Influencers of Health Screening 03/14/2026 03/14/2025 Hypertension/CHF/CAD Annual BMP Blood Test 07/10/2026 07/10/2025, 06/28/2025, 06/13/2025, Additional history exists Breast Cancer Screening 07/17/2027 07/17/2025 Colorectal Cancer Screening: Colonoscopy 02/15/2029 02/16/2024 DTaP,Tdap,and Td Vaccines (2 - Td or Tdap) 06/20/2029 06/20/2019 Cholesterol Screening (Lipid Panel) 06/13/2030 06/13/2025, 07/02/2024, 07/02/2024 Osteoporosis Screening (Bone Density Screening) 04/01/2032 04/01/2022 Hepatitis C Screening Completed 08/14/2014 Zoster Vaccines Completed 04/17/2023, 10/22, 09/07/2017 Pneumococcal Vaccine: 50+ Years Completed 01/17/2024, 04/06/2022 RSV Immunization Adult Patients Completed 09/08/2024 Depression Screening Completed 03/14/2025 HIB Vaccines Aged Out No longer eligi [...] Procedure Name Priority Date/Time Associated Diagnosis Comments MG MAMMO DIGITAL SCREENING BILAT Routine 07/17/2025 8:07 AM EDT Breast cancer screening by mammogram BASIC METABOLIC PANEL Routine 07/10/2025 1:20 PM EDT Hypokalemia ALKALINE PHOSPHATASE, ISOENZYMES Routine 07/10/2025 1:20 PM EDT Elevated alkaline phosphatase level PARATHYROID HORMONE INTACT Routine 07/10/2025 1:20 PM EDT Elevated alkaline phosphatase level US PELVIS NON OB COMPLETE W TRANSVAGINAL Routine 07/10/2025 1:11 PM EDT Abnormal finding present on diagnostic imaging of uterus CT ABDOMEN PELVIS W CONTRAST Routine 07/01/2025 1:33 PM EDT Abnormal ultrasound of liver Diaphragmatic eventration THYROID STIMULATING HORMONE WITH REFLEX TO FREE T4 AND FREE T3 Routine 06/28/2025 10:05 AM EDT Subclinical hypothyroidism BASIC METABOLIC PANEL Routine 06/28/2025 10:05 AM EDT Function kidney decreased GAMMA GLUTAMYL TRANSFERASE Routine 06/28/2025 10:05 AM EDT Elevated alkaline phosphatase level US ABDOMEN LIMITED Routine 06/25/2025 8: 42 AM EDT Diaphragmatic eventration TRIIODOTHYRONINE FREE Routine 06/13/2025 10:23 AM EDT Subclinical hypothyroidism FREE THYROXINE WITH REFLEX TO FREE TRIIODOTHYRONINE Routine 06/13/2025 10:23 AM EDT Subclinical hypothyroidism MAGNESIUM Routine 06/13/2025 10:23 AM EDT Hypomagnesemia VITAMIN B12 Routine 06/13/2025 10:23 AM EDT Vitamin B12 deficiency VITAMIN D 25 HYDROXY Routine 06/13/2025 10:23 AM EDT Vitamin D deficiency COMPREHENSIVE METABOLIC PANEL Routine 06/13/2025 10:23 AM EDT Encounter for initial annual wellness visit (AWV) in Medicare patient THYROID STIMULATING HORMONE WITH REFLEX TO FREE T4 AND FREE T3 Routine 06/13/2025 10:23 AM EDT Subclinical hypothyroidism HEMOGLOBIN A1C Routine 06/13/2025 10:23 AM EDT Prediabetes LIPID PANEL WITH REFLEX TO DIRECT LDL Routine 06/13/2025 10:23 AM EDT Mixed hyperlipidemia IRON AND TIBC Routine 06/13/2025 10:23 AM EDT History of iron deficiency XR CHEST 2 VIEWS Routine 06/13/2025 10:0 0 AM EDT Wheezing PULMONARY FUNCTION TESTING Routine 05/07/2025 10:21 AM EDT Wheezing COLONOSCOPY Routine 02/16/2024 DXA BONE DENSITY STUDY 1+ SITS AXIAL SKEL Routine 04/01/2022 2:36 PM EDT Encounter for screening for osteoporosis HEPATITIS C SCREENING Routine 08/14/2014 from Last 3 Months or Most Recently Relevant to Health Maintenance Results * MG Mammo Digital Screening bilat (07/17/2025 8:07 AM EDT) Anatomical Region Laterality Modality Breast Bilateral Mammography 07/18/2025 3:53 PM EDT Impressions 07/18/2025 4:03 PM EDT No mammographic evidence of malignancy. No suspicious interval change. A negative mammogram in the presence of a clinically suspicious palpable abnormality does not preclude the possibility of malignancy or alter the indications for biopsy. ASSESSMENT: BI-RADS 1: NEGATIVE RECOMMENDATION(S): 1: Routine screening mammogram BILATERAL in 1 year. [facility] location[facility] [address], [address] -------- FINAL REPORT -------- Dictated By: Charile Alicea Dictated Date: 07/18/2025 15:53 ET Assigned Physician: Charlie Alicea Reviewed and Electronically Signed By: Charlie Alicea Signed Date: 07/18/2025 16:03 ET Workstation ID: [id number] Transcribed By: Self Edit Transcribed Date: 07/18/2025 15:53 ET Narrative 07/18/2025 4:03 PM EDT EXAM: SCREENING MAMMOGRAPHY, BILATERAL HISTORY: SCREENING. Left breast surgery for reportedly benign process during the . COMPARISON: 04/28/17 TECHNIQUE: Synthesized CC and MLO projections of each breast. Tomosynthesis of each breast in the CC and MLO projections. ADDITIONAL IMAGING: None Computer-aided detection was employed with the Delta ID AI 3-D. TISSUE DENSITY: There are scattered areas of fibroglandular density. (BI-RADS category B) FINDINGS: RIGHT BREAST: No suspicious mass. No suspicious calcification. No distortion. No additional suspicious right breast findings LEFT BREAST: No suspicious mass. No suspicious calcification. No distortion. No additional suspicious left breast findings Procedure Note Charlie Alicea MD - 07/18/2025 EXAM: SCREENING MAMMOGRAPHY, BILATERAL HISTORY: SCREENING. Left breast surgery for reportedly benign processduring the . COMPARISON: 04/28/17 TECHNIQUE: Synthesized CC and MLO projections of each breast.Tomosynthesis of each breast in the CC and MLO projections. ADDITIONAL IMAGING: None Computer-aided detection was employed with the Novel SuperTV ProFound AI 3-D. TISSUE DENSITY: There are scattered areas of fibroglandular density.(BI-RADS category B) FINDINGS: RIGHT BREAST: No suspicious mass. No suspicious calcification. No distortion. Noadditional suspicious right breast findings LEFT BREAST: No suspicious mass. No suspicious calcification. No distortion. Noadditional suspicious left breast findings IMPRESSION: No mammographic evidence of malignancy. No suspicious interval change. A negative mammogram in the presence of a clinically suspicious palpableabnormality does not preclude the possibility of malignancy or alter theindications for biopsy. ASSESSMENT: BI-RADS 1: NEGATIVE RECOMMENDATION(S): 1: Routine screening mammogram BILATERAL in 1 year. [facility] location[facility] [address], [address] -------- FINAL REPORT -------- Dictated By: Charlie Alicea Dictated Date: 07/18/2025 15:53 ET Assigned Physician: Charlie Alicea Reviewed and Electronically Signed By: Charlie Alicea Signed Date: 07/18/2025 16:03 ET Workstation ID: [id number] Transcribed By: Self Edit Transcribed Date: 07/18/2025 15:53 ET us Iveth Timbo [facility] BI PROCEDURES Final Result * (ABNORMAL) Alkaline phosphatase, isoenzymes (07/10/2025 1:20 PM EDT) Alkaline Phosphatase 151 37 - 153 U/L 07/24/2025 10:43 PM EDT [facility] Comment: Test Performed at: [facility] [address] [place] [phone] Millie Antonio MD, PhD, GUERITA Alk Phos Isoenzyme Intestine 0(L) 1 - 24 % 07/24/2025 10:43 PM EDT [facility] Alk Phos Isoenzyme Bone 42 28 - 66 % 07/24/2025 10:43 PM EDT [facility] Alk Phos Isoenzyme Liver 58 25 - 69 % 07/24/2025 10:43 PM EDT [facility] Comment: Increased intestinal alkaline phosphatase can be seen in blood group O and B secretors and after fatty meals. Alk Phos Isoenzyme Placental 0 0 % 07/24/2025 10:43 PM EDT [facility] Comment: Test Performed at: [facility] [address] [place] [phone] Millie Antonio MD, PhD, GUERITA Alk Phos Isoenzyme Macrohepatic TNP 07/24/2025 10:43 PM EDT [facility] Alkaline Phosphatase Isoenzymes Interpretation TNP 07/24/2025 10:43 PM EDT [facility] Blood Venous blood specimen / Unknown Venipuncture / Unknown 07/10/2025 1:20 PM EDT 07/10/2025 1:20 PM EDT us Iveth Izquierdo PA LAB BLOOD ORDERABLES Edited Resu lt - Final [facility] [address] [place] [address] * (ABNORMAL) Parathyroid hormone intact (07/10/2025 1:20 PM EDT) PTH 287.3(H) 18.5 - 88.0 pcg/mL LAB CHEMISTRY METHOD 07/10/2025 6:26 PM EDT [facility] Blood Venous blood specimen / Unknown Venipuncture / Unknown 07/10/2025 1:20 PM EDT 07/10/2025 1:20 PM EDT us Iveth Izquierdo PA LAB BLOOD ORDERABLES Final Resul t Performing Organization Address City/[facility]/ZIP Co de Phone Number [facility] [address] [place] [address], [place] [phone] * Basic metabolic panel (07/10/2025 1:20 PM EDT) Only the most recent of2 resultswithin the time period is included. Sodium 137 133 - 145 mmol/L LAB CHEMISTRY METHOD 07/10/2025 5:43 PM EDT [facility] Potassium 3.9 3.5 - 5.5 mmol/L LAB CHEMISTRY METHOD 07/10/2025 5:43 PM EDT [facility] Chloride 104 96 - 110 mmol/L LAB CHEMISTRY METHOD 07/10/2025 5:43 PM EDT [facility] CO2 27 21 - 32 mmol/L LAB CHEMISTRY METHOD 07/10/2025 5:43 PM EDT [facility] Anion Gap 6 3 - 11 LAB CHEMISTRY METHOD 07/10/2025 5:43 PM EDT [facility] Glucose 97 70 - 100 mg/dL LAB CHEMISTRY METHOD 07/10/2025 5:43 PM EDT [facility] BUN 18 5 - 25 mg/dL LAB CHEMISTRY METHOD 07/10/2025 5:43 PM EDT [facility] Creatinine 0.71 0.50 - 1.10 mg/dL LAB CHEMISTRY METHOD 07/10/2025 5:43 PM EDT [facility] eGFR 92 >=60 mL/min/1. 73m2 LAB CHEMISTRY METHOD 07/10/2025 5:43 PM EDT [facility] Comment:Calculation based on the Chronic Kidney Disease Epidemiology Collaboration (CKD-EPI) equation refit without adjustment for race. BUN/Creatinine Ratio 25.4 LAB CHEMISTRY METHOD 07/10/2025 5:43 PM EDT [facility] Calcium 9.1 8.5 - 10.5 mg/dL LAB CHEMISTRY METHOD 07/10/2025 5:43 PM EDT [facility] Blood Venous blood specimen / Unknown Venipuncture / Unknown 07/10/2025 1:20 PM EDT 07/10/2025 1:20 PM EDT us Iveth Timbo [facility] BLOOD ORDERABLES Final Resul t [facility] [address] [place] [address], [place] [phone] * US Pelvis Non OB Complete w Transvaginal (07/10/2025 1:11 PM EDT) Anatomical Region Laterality Modality Body, Pelvis Ultrasound 07/10/2025 1:36 PM EDT Impressions 07/10/2025 1:44 PM EDT Endometrial polyps with the largest measuring 1.3 x 0.9 x 0.7 cm. Fluid distends the uterine cavity. Gynecology referral is suggested. -------- FINAL REPORT -------- Dictated By: Ale Bird Dictated Date: 07/10/2025 13:36 ET Assigned Physician: Ael Bird Reviewed and Electronically Signed By: Ale Bird Signed Date: 07/10/2025 13:44 ET Workstation ID: [id number] Transcribed By: Self Edit Transcribed Date: 07/10/2025 13:36 ET Narrative 07/10/2025 1:44 PM EDT US PELVIS NON OB COMPLETE W TRANSVAGINAL PELVIC ULTRASOUND History: Central hypoenhancing area within the uterus on CT. Procedure: Real-time and color Doppler pelvic and transvaginal ultrasound. Comparison: CT abdomen pelvis 07/01/2025. FINDINGS: The study is extremely limited by the patient's body habitus. The uterus measures 8.2 x 2.4 x 4.9 cm for a volume of 72 cc. There is fluid distending the uterine cavity. There appear to be endometrial polyps. The largest polyp was measured and measures 1.3 x 0.9 x 0.7 cm. Only the posterior wall of the endometrium is visualized and this appears to measure 2 mm. No evidence of adnexal mass seen. Transvaginal sonographic examination was performed for better evaluation of the adnexa. Neither ovary was visualized. No free fluid was demonstrated. Procedure Note Ale Bird MD - 07/10/2025 US PELVIS NON OB COMPLETE W TRANSVAGINAL PELVIC ULTRASOUND History: Central hypoenhancing area within the uterus on CT. Procedure: Real-time and color Doppler pelvic and transvaginal ultrasound. Comparison: CT abdomen pelvis 07/01/2025. FINDINGS: The study is extremely limited by the patient's body habitus. The uterus measures 8.2 x 2.4 x 4.9 cm for a volume of 72 cc. There isfluid distending the uterine cavity. There appear to be endometrialpolyps. The largest polyp was measured and measures 1.3 x 0.9 x 0.7 cm.Only the posterior wall of the endometrium is visualized and this appearsto measure 2 mm. No evidence of adnexal mass seen. Transvaginal sonographic examination was performed for better evaluationof the adnexa. Neither ovary was visualized. No free fluid was demonstrated. IMPRESSION: Endometrial polyps with the largest measuring 1.3 x 0.9 x 0.7 cm. Fluiddistends the uterine cavity. Gynecology referral is suggested. -------- FINAL REPORT -------- Dictated By: Ale Bird Dictated Date: 07/10/2025 13:36 ET Assigned Physician: Ale Bird Reviewed and Electronically Signed By: Ale Bird Signed Date: 07/10/2025 13:44 ET Workstation ID: [id number] Transcribed By: Self Edit Transcribed Date: 07/10/2025 13:36 ET us Iveth Timbo [facility] US PROCEDURES Final Result * CT Abdomen Pelvis w Contrast (07/01/2025 1:33 PM EDT) Anatomical Region Laterality Modality Body Computed Tomogra phy 07/01/2025 2:28 PM EDT Narrative 07/01/2025 2:[address] of the abdomen and pelvis with intravenous contrast. HISTORY: Abnormality on abdominal ultrasound. Within the left lobe of the liver and duodenum. Status post gastric bypass surgery. Examination was performed on multidetector scanner with administration of 100 cc of Isovue-370. No prior CT scans are available for comparison. Ultrasound obtained on 06/25/2025 was reviewed. There are post operative changes with evidence of gastric bypass surgery. The area of concern seen on abdominal ultrasound probably representing afferent loop, resulting from gastric bypass surgery. Gallbladder is surgically absent. There is no focal lesions within the liver. There is no biliary ducts dilatation. Liver revealed somewhat decreased attenuation which could be due to steatosis. No focal abnormalities were identified in the adrenal glands, pancreas or kidneys. There is no evidence of bowel obstruction. Appendix is surgically absent. There is no CT findings for diverticulitis. Uterus is heterogeneous in attenuation. There is rounded hypoenhancing area in the uterus measuring approximately 2.8 cm in diameter. It could represent fibroid or other abnormality. Correlation with pelvic ultrasound is recommended. Adnexal regions are unremarkable. Urinary bladder is not well-distended. There is a tiny fat-containing umbilical hernia. Lung bases are clear. There is no suspicious bone abnormalities. There are degenerative changes at L3-4 level. CONCLUSIONS: Status post gastric bypass surgery. The area of concern seen on ultrasound most likely represents afferent loop from bypass surgery. Mildly decreased attenuation of the liver which could be due to steatosis. Central hypoenhancing area within the uterus. Correlation with pelvic ultrasound is recommended. -------- FINAL REPORT -------- Dictated By: Rokhlenko, Soni Dictated Date: 07/01/2025 14:28 ET Assigned Physician: Soni Curtis Reviewed and Electronically Signed By: Soni Curtis Signed Date: 07/01/2025 14:44 ET Workstation ID: [id number] Transcribed By: Self Edit Transcribed Date: 07/01/2025 14:28 ET Procedure Note Soni Curtis MD - 07/01/2025 CT of the abdomen and pelvis with intravenous contrast. HISTORY: Abnormality on abdominal ultrasound. Within the left lobe of theliver and duodenum. Status post gastric bypass surgery. Examination was performed on multidetector scanner with administration of100 cc of Isovue-370. No prior CT scans are available for comparison.Ultrasound obtained on 06/25/2025 was reviewed. There are post operative changes with evidence of gastric bypass surgery.The area of concern seen on abdominal ultrasound probably representingafferent loop, resulting from gastric bypass surgery. Gallbladder is surgically absent. There is no focal lesions within theliver. There is no biliary ducts dilatation. Liver revealed somewhatdecreased attenuation which could be due to steatosis. No focalabnormalities were identified in the adrenal glands, pancreas orkidneys. There is no evidence of bowel obstruction. Appendix is surgically absent.There is no CT findings for diverticulitis. Uterus is heterogeneous in attenuation. There is rounded hypoenhancingarea in the uterus measuring approximately 2.8 cm in diameter. It couldrepresent fibroid or other abnormality. Correlation with pelvic ultrasoundis recommended. Adnexal regions are unremarkable. Urinary bladder is notwell-distended. There is a tiny fat-containing umbilical hernia. Lung bases are clear. There is no suspicious bone abnormalities. There aredegenerative changes at L3-4 level. CONCLUSIONS: Status post gastric bypass surgery. The area of concern seenon ultrasound most likely represents afferent loop from bypass surgery.Mildly decreased attenuation of the liver which could be due to steatosis.Central hypoenhancing area within the uterus. Correlation with pelvicultrasound is recommended. -------- FINAL REPORT -------- Dictated By: Soni Curtis Dictated Date: 07/01/2025 14:28 ET Assigned Physician: Soni Curtis Reviewed and Electronically Signed By: Soni Curtis Signed Date: 07/01/2025 14:44 ET Workstation ID: [id number] Transcribed By: Self Edit Transcribed Date: 07/01/2025 14:28 ET us Iveth Izquierdo PA IMG CT PROCEDURES Final Result * Thyroid stimulating hormone with reflex to free t4 and free t3 (06/28/2025 10:05 AM EDT) Only the most recent of2 resultswithin the time period is included. TSH 3.71 0.40 - 4.00 mcIU/mL LAB CHEMISTRY METHOD 06/28/2025 3:22 PM EDT [facility] Blood Venous blood specimen / Unknown Venipuncture / Unknown 06/28/2025 10:05 AM EDT 06/28/2025 10:05 AM EDT us Iveth Izquierdo PA LAB BLOOD ORDERABLES Final Resul t Performing Organization Address City/[facility]/ZIP Co de Phone Number [facility] [address] [place] [address], [place] [phone] * GGT (06/28/2025 10:05 AM EDT) Pathologist [facility] [place] GGT 38 7 - 64 unit/L LAB CHEMISTRY METHOD 06/28/2025 1:35 PM EDT [facility] Blood Venous blood specimen / Unknown Venipuncture / Unknown 06/28/2025 10:05 AM EDT 06/28/2025 10:05 AM EDT us Iveth Izquierdo PA LAB BLOOD ORDERABLES Final Resul t Performing Organization Address City/[facility]/ZIP Co de Phone Number [facility] [address] [place] [address], [place] [phone] * US Abdomen Limited (06/25/2025 8:42 AM EDT) Anatomical Region Laterality Modality Body Ultrasound 06/25/2025 9:51 AM EDT Impressions 06/25/2025 11:00 AM EDT Limited exam. 2.9 cm hypoechoic area located between the left hepatic lobe and duodenum which is of uncertain etiology. Recommend CT as the initial step in further evaluation. Status post cholecystectomy. No biliary ductal dilatation. Pancreas obscured by bowel gas. 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 COMPARISON: None, correlation with chest radiography 06/13/2025 FINDINGS: Exam very limited by patient body habitus. Liver: Normal in size measuring 15.8 cm in craniocaudad extent. Parenchymal echotexture appears within normal limits. 2.9 x 2.4 x 2.1 cm hypoechoic area between the left hepatic lobe and duodenum, possibly arising from the liver. Gallbladder/Biliary Tree: Status post cholecystectomy. No intra or extrahepatic biliary ductal dilatation. The common bile duct measures 0.4 cm. Pancreas: Obscured by bowel gas. Right kidney: Normal in size measuring 10.7 cm in craniocaudad extent. No hydronephrosis, focal lesions, or shadowing stones. Vasculature: Hepatopedal flow in the main portal vein. 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 COMPARISON: None, correlation with chest radiography 06/13/2025 FINDINGS: Exam very limited by patient body habitus. Liver: Normal in size measuring 15.8 cm in craniocaudad extent.Parenchymal echotexture appears within normal limits. 2.9 x 2.4 x 2.1 cmhypoechoic area between the left hepatic lobe and duodenum, possiblyarising from the liver. Gallbladder/Biliary Tree: Status post cholecystectomy. No intra orextrahepatic biliary ductal dilatation. The common bile duct measures 0.4cm. Pancreas: Obscured by bowel gas. Right kidney: Normal in size measuring 10.7 cm in craniocaudad extent. Nohydronephrosis, focal lesions, or shadowing stones. Vasculature: Hepatopedal flow in the main portal vein. IMPRESSION: Limited exam. 2.9 cm hypoechoic area located between the left hepatic lobe and duodenumwhich is of uncertain etiology. Recommend CT as the initial step infurther evaluation. Status post cholecystectomy. No biliary ductal dilatation. Pancreas obscured by bowel gas. POS [id number] -------- FINAL REPORT -------- Dictated By: Jovana Robles Dictated Date: 06/25/2025 09:51 ET Assigned Physician: Jovana Robles Reviewed and Electronically Signed By: Jovana Robles Signed Date: 06/25/2025 11:00 ET Workstation ID: [id number] Transcribed By: Self Edit Transcribed Date: 06/25/2025 10:04 ET us Iveth RILEY IMG US PROCEDURES Final Result * Free thyroxine with reflex to free triiodothyronine (06/13/2025 10:23 AM EDT) Free T4 1.02 0.70 - 1.80 ng/dL LAB CHEMISTRY METHOD 06/13/2025 2:59 PM EDT [facility] Blood Venous blood specimen / Unknown Venipuncture / Unknown 06/13/2025 10:23 AM EDT 06/13/2025 10:23 AM EDT us Iveth RILEY LAB BLOOD ORDERABLES Final Resul t [facility] [address] [place] [address], [place] [phone] * (ABNORMAL) Lipid panel with reflex to direct LDL (06/13/2025 10:23 AM EDT) Cholesterol 216(H) 0 - 200 mg/dL LAB CHEMISTRY METHOD 06/13/2025 1:44 PM EDT [facility] Triglycerides 191(H) 0 - 150 mg/dL LAB CHEMISTRY METHOD 06/13/2025 1:44 PM EDT [facility] HDL 76 >=40 mg/dL LAB CHEMISTRY METHOD 06/13/2025 1:44 PM EDT [facility] LDL Calculated 102(H) 0 - 100 mg/dL LAB CHEMISTRY METHOD 06/13/2025 1:44 PM EDT [facility] VLDL Cholesterol Fernando 38.2 mg/dL LAB CHEMISTRY METHOD 06/13/2025 1:44 PM EDT [facility] Non HDL Chol. (LDL+VLDL) 140 <145 mg/dL LAB CHEMISTRY METHOD 06/13/2025 1:44 PM EDT [facility] Chol/HDL Ratio 2.8 0.0 - 4.4 LAB CHEMISTRY METHOD 06/13/2025 1:44 PM EDT [facility] Blood Venous blood specimen / Unknown Venipuncture / Unknown 06/13/2025 10:23 AM EDT 06/13/2025 10:23 AM EDT us Iveth Timbo RILEY LAB BLOOD ORDERABLES Final Resul t [facility] [address] [place] [address], * Iron and TIBC (06/13/2025 10:23 AM EDT) Iron 132 40 - 150 mcg/dL LAB CHEMISTRY METHOD 06/13/2025 1:44 PM EDT [facility] TIBC 428 250 - 450 mcg/dL LAB CHEMISTRY METHOD 06/13/2025 1:44 PM EDT [facility] Iron Saturation 31 15 - 50 % LAB CHEMISTRY METHOD 06/13/2025 1:44 PM EDT [facility] Blood Venous blood specimen / Unknown Venipuncture / Unknown 06/13/2025 10:23 AM EDT 06/13/2025 10:23 AM EDT us Iveth Izquierdo PA LAB BLOOD ORDERABLES Final Resul t Performing Organization Address City/[facility] de Phone Number [facility] [address] [place] [address], [place] [phone] * (ABNORMAL) Vitamin D 25 hydroxy (06/13/2025 10:23 AM EDT) Vit D, 25-Hydroxy 20.2(L) 30.0 - 80.0 ng/mL LAB CHEMISTRY METHOD 06/13/2025 2:12 PM EDT [facility] Blood Venous blood specimen / Unknown Venipuncture / Unknown 06/13/2025 10:23 AM EDT 06/13/2025 10:23 AM EDT us Iveth Izquierdo PA LAB BLOOD ORDERABLES Final Resul t Performing Organization Address [facility] de Phone Number [facility] [address] [place] [address], [place] [phone] * Triiodothyronine free (06/13/2025 10:23 AM EDT) T3, Free 297 230 - 420 pcg/dL LAB CHEMISTRY METHOD 06/13/2025 3:37 PM EDT [facility] Blood Venous blood specimen / Unknown Venipuncture / Unknown 06/13/2025 10:23 AM EDT 06/13/2025 10:23 AM EDT us Iveth Izquierdo PA LAB BLOOD ORDERABLES Final Resul t Performing Organization Address City/[facility] Co de Phone Number [facility] [address] [place] [address], [place] [phone] * Magnesium (06/13/2025 10:23 AM EDT) [facility] Magnesium 2.2 1.9 - 2.6 mg/dL LAB CHEMISTRY METHOD 06/13/2025 1:04 PM EDT [facility] Blood Venous blood specimen / Unknown Venipuncture / Unknown 06/13/2025 10:23 AM EDT 06/13/2025 10:23 AM EDT us Iveth Izquierdo PA LAB BLOOD ORDERABLES Final Resul t Performing Organization Address City/[facility]/ZIP Co de Phone Number [facility] [address] [place] [address], [place] [phone] * Hemoglobin A1c (06/13/2025 10:23 AM EDT) [facility] Hemoglobin A1C 5.9 <6.5 % LAB CHEMISTRY METHOD 06/13/2025 1:29 PM EDT [facility] Mean Bld Glu Estim. 123 mg/dL LAB CHEMISTRY METHOD 06/13/2025 1:29 PM EDT [facility] Blood Venous blood specimen / Unknown Venipuncture / Unknown 06/13/2025 10:23 AM EDT 06/13/2025 10:23 AM EDT us Iveth Mezaong PA LAB BLOOD ORDERABLES Final Resul t [facility] [address] [place] [address], [place] [phone] * (ABNORMAL) Vitamin B12 (06/13/2025 10:23 AM EDT) [facility] Vitamin B-12 1,723(H) 250 - 900 pcg/mL LAB CHEMISTRY METHOD 06/13/2025 1:44 PM EDT [facility] Blood Venous blood specimen / Unknown Venipuncture / Unknown 06/13/2025 10:23 AM EDT 06/13/2025 10:23 AM EDT us Iveth Timbo RILEY LAB BLOOD ORDERABLES Final Resul t [facility] [address] [place] [address], [place] [phone] * (ABNORMAL) Comprehensive metabolic panel (06/13/2025 10:23 AM EDT) Sodium 140 133 - 145 mmol/L LAB CHEMISTRY METHOD 06/13/2025 1:44 PM EDT [facility] Potassium 4.0 3.5 - 5.5 mmol/L LAB CHEMISTRY [facility] Chloride 106 96 - 110 mmol/L LAB CHEMISTRY METHOD 06/13/2025 1:44 PM T [facility] CO2 22 21 - 32 mmol/L LAB CHEMISTRY METHOD 06/13/2025 1:44 PM T [facility] Anion Gap 12(H) 3 - 11 LAB CHEMISTRY METHOD 06/13/2025 1:44 PM [facility] Glucose 124(H) 70 - 100 mg/dL LAB CHEMISTRY METHOD 06/13/2025 1:44 PM [facility] BUN 16 5 - 25 mg/dL LAB CHEMISTRY METHOD 06/13/2025 1:44 PM EDT [facility] Creatinine 1.08 0.50 - 1.10 mg/dL LAB CHEMISTRY METHOD 06/13/2025 1:44 PM [facility] eGFR 56(L) >=60 mL/min/1. 73m2 LAB CHEMISTRY METHOD 06/13/2025 1:44 PM T [facility] Comment:Calculation based on the Chronic Kidney Disease Epidemiology Collaboration (CKD-EPI) equation refit without adjustment for race. BUN/Creatinine Ratio 14.8 LAB CHEMISTRY METHOD 06/13/2025 1:44 PM EDT [facility] Calcium 9.6 8.5 - 10.5 mg/dL LAB CHEMISTRY METHOD 06/13/2025 1:44 PM EDT [facility] AST (SGOT) 40 10 - 42 unit/L LAB CHEMISTRY METHOD 06/13/2025 1:44 PM EDT [facility] ALT (SGPT) 32 10 - 60 unit/L LAB CHEMISTRY METHOD 06/13/2025 1:44 PM EDT [facility] Alkaline Phosphatase 184(H) 42 - 121 unit/L LAB CHEMISTRY METHOD 06/13/2025 1:44 PM EDT [facility] Total Protein 7.7 6.0 - 8.0 g/dL LAB CHEMISTRY METHOD 06/13/2025 1:44 PM EDT [facility] Albumin 4.2 3.2 - 5.0 g/dL LAB CHEMISTRY METHOD 06/13/2025 1:44 PM EDT [facility] Total Bilirubin 0.9 0.0 - 1.4 mg/dL LAB CHEMISTRY METHOD 06/13/2025 1:44 PM EDT [facility] Blood Venous blood specimen / Unknown Venipuncture / Unknown 06/13/2025 10:23 AM EDT 06/13/2025 10:23 AM EDT us Iveth Timbo RILEY LAB BLOOD ORDERABLES Final Resul t [facility] [address] [place] [address], * XR Chest 2 Views (06/13/2025 10:00 AM EDT) Anatomical Region Laterality Modality Body Radiographic Linnea ging 06/13/2025 10:1 9 AM EDT Impressions 06/13/2025 10:21 AM EDT No acute pulmonary pathology. 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 -------- FINAL REPORT -------- Dictated By: Ale Bird Dictated Date: 06/13/2025 10:19 ET Assigned Physician: Ale Bird Reviewed and Electronically Signed By: Ale Bird Signed Date: 06/13/2025 10:21 ET Workstation ID: [id number] Transcribed By: Self Edit Transcribed Date: 06/13/2025 10:19 ET Narrative 06/13/2025 10:21 AM EDT CHEST, TWO VIEWS HISTORY: Wheezing . TECHNIQUE: Frontal and lateral views of the chest. PRIOR: Chest x-ray 08/26/2016 FINDINGS: There is partial eventration of the right hemidiaphragm, and this has increased since the previous study. The lungs are clear. No pleural effusion is seen. No pneumothorax is seen. The cardiac diameter is within normal limits. No acute or aggressive appearing bony abnormalities are seen. There is curvature and degenerative change of the spine. Procedure Note Ale Bird MD - 06/13/2025 CHEST, TWO VIEWS HISTORY: Wheezing . TECHNIQUE: Frontal and lateral views of the chest. PRIOR: Chest x-ray 08/26/2016 FINDINGS: There is partial eventration of the right hemidiaphragm, andthis has increased since the previous study. The lungs are clear. No pleural effusion is seen. No pneumothorax is seen. The cardiac diameter is within normal limits. No acute or aggressive appearing bony abnormalities are seen. There iscurvature and degenerative change of the spine. IMPRESSION: No acute pulmonary pathology. Increased partial eventration of the righthemidiaphragm of unknown clinical significance. -------- FINAL REPORT -------- Dictated By: Ale Bird Dictated Date: 06/13/2025 10:19 ET Assigned Physician: Ale Bird Reviewed and Electronically Signed By: Ale Bird Signed Date: 06/13/2025 10:21 ET Workstation ID: [id number] Transcribed By: Self Edit Transcribed Date: 06/13/2025 10:19 ET us Iveth Izquierdo PA IMG XR PROCEDURES Final Result * Pulmonary function testing: Spirometry with Bronchodilator, [...] predicted Summary, this is a normal PFT us Iveth Timbo RILEY PFT ORDERABLES Final Result * Colonoscopy (02/16/2024) Colonoscopy No interpretation , Abstracted Comment:Repeat in 5 years. Anatomical Region Laterality Modality Other Historical Provider HEALTH MAINTENANCE Final Result * DXA [...] (World Health Organization Fracture Risk Assessment) [facility] Department of Internal Medicine recommends using National [...] the World Health Organization criteria, Macy Castillo shouldbe classified as having osteopenia. This patient has a 7% risk of majorosteoporotic fracture and a 0.5% risk of hip fracture over the next 10years. (World Health Organization Fracture Risk Assessment) [facility] Department of Internal Medicine recommendsusing National Osteoporosis [...] Final Result * Hepatitis C Screening (08/14/2014) 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
--- OUTSIDE RECORDS SUMMARY | 2025-07-26 10:39 | XMS_ITS ---
Author Name [facility] Organization Unknown Care Team Organization Name Specialty Phone Email Start Date End Da te [facility] Santiago Love Primary Care 03/28/2023
== END 2025-07-26 10:45 | disposition home or self-care (01) ==
LOC: HO.HPSW 09:53
PROVIDERS: PCP Physician Assistant Medical; Visit Provider Nurse Practitioner Family
DX: G47.33 Obstructive sleep apnea (adult) (pediatric) (principal); R06.09 Other forms of dyspnea; R40.0 Somnolence
CPT/HCPCS: 99214

== ENCOUNTER → 2025-07-26 09:52 | Outpatient (BNVA) | payer MEDICARE, SELFPAY | PROVIDERS: PCP Physician Assistant Medical; Visit Provider Nurse Practitioner Family | DX: G47.33 Obstructive sleep apnea (adult) (pediatric) (principal); R06.09 Other forms of dyspnea; R40.0 Somnolence; Z99.89 Dependence on other enabling machines and devices; E66.9 Obesity, unspecified; Z68.43 Body mass index [BMI] 50.0-59.9, adult; I10 Essential (primary) hypertension | CPT/HCPCS: 99212 ==

== ENCOUNTER 2025-08-06 13:35 | Outpatient (REF) | payer MEDICARE, SELFPAY ==
--- NOTE | ~2025-08-06 | XR_ITS ---
EXAMINATION: XR CHEST CLINICAL INFORMATION: R06.09 - Other forms of dyspnea COMPARISON: None available. TECHNIQUE: 2 views of the chest were obtained. FINDINGS: Marked elevation of the right hemidiaphragm. The cardiac, hilar, and mediastinal contours are normal. The lungs are clear bilaterally. There is no pneumothorax or pleural effusion. There is no focal osseous or soft tissue abnormality. XR/XR chest 2V IMPRESSION: 1. Elevated right hemidiaphragm. 2. No active pulmonary disease. Electronically signed by: Matt Aviles MD 08/06/2025 01:53 PM EDT
--- OUTSIDE RECORDS SUMMARY | 2025-08-06 17:32 | XMS_ITS | Clinical Summary ---
Author Organization [address] Address [address] [place] [phone] Phone Care Team Providers Care Artificial Intelligence Specialist Name Role Phone Santiago Love Primary Care Provider [phone] Allergies Active Allergy Reactions Criticality Noted Date [...] propionate (FLONASE) 50 mcg/actuation nasal spray 1 [place] by Nasal route daily. 2 Active meclizine [...] (one) time each day. 135 each 1 5 Active levothyroxine (SYNTHROID, LEVOTHROID) 50 mcg tablet Take 1 tablet (50 mcg total) by mouth 1 (one) time each day before breakfast. Active Active Problems Problem Noted Date Diagnosed Date Morbid obesity with BMI of 5 0.0-59.9, adult ([facility] V24, [facility] V28) 07/08/2024 Osteopenia 04/01/2022 Depression with anxiety [...] & Plan: Followed by Dr. Pickering with [facility]. Continue Lasix at current dose. Continue CPAP [...] EDT [facility] at [address] [phone] Breast cancer screening by mammogram Discharge Disposition: Home or Self Care 07/10/2025 12:20 PM EDT - 07/10/2025 11:59 PM EDT Hospital Encounter Radiology Department - [address] [phone] Abnormal finding present on diagnostic imaging of uterus Discharge Disposition: Home or Self Care 07/01/2025 1:09 PM EDT - 07/01/2025 11:59 PM EDT Hospital Encounter CT Scan - [address] [phone] Abnormal ultrasound of liver; Diaphragmatic eventration Discharge Disposition: Home or Self Care 06/28/2025 Telephone Adult Medicine [address] [phone] Iveth Izquierdo, PA 06/25/2025 8:23 AM EDT - 06/25/2025 11:59 PM EDT Hospital Encounter Radiology Department - [address] [phone] Diaphragmatic eventration Discharge Disposition: Home or Self Care 06/13/2025 9:52 AM EDT - 06/13/2025 11:59 PM EDT Hospital Encounter XRAY - [address] [phone] Wheezing Discharge Disposition: Home or Self Care 06/13/2025 9:30 AM EDT Office Visit Adult Medicine [address] [phone] Iveth Izquierdo, PA Mixed hyperlipidemia (Primary Dx); Prediabetes; Subclinical hypothyroidism; Vitamin B12 deficiency; Vitamin D deficiency; History of iron deficiency; Hypomagnesemia; Pulmonary hypertension ([facility]/HCC V24, [facility]/HCC V28); SONJA (obstructive sleep apnea); Anxiety and depression; Fibromyalgia; Wheezing; Morbid obesity with BMI of 50.0-59.9, adult ([facility] V24, [facility] V28) 05/07/2025 10:00 AM EDT Ancillary Procedure Pulmonolgy - [place] [address] [facility] [address] [place] [address] Wheezing (Primary Dx) from Last [...] Date Site/Laterality Comments GASTRIC BYPASS 11/21/2004 PROCEDURE: MT GASTRIC RSTCV W/BYP W/SM INT RCNSTJ LIMIT ABSRPJ; COMMENT: gastric bypass SECTION 11/21/1981 PROCEDURE: HISTORICAL APPENDECTOMY 11/21/1979 PROCEDURE: HISTORICAL APPENDECTOMY OTHER SURGICAL HISTORY PROCEDURE: MT DILATION & CURETTAGE DX&/THER NONOBSTETRIC; COMMENT: x 2 BREAST LUMPECTOMY PROCEDURE: HISTORICAL BREAST LUMPECTOMY; COMMENT: left breast (); benign CHOLECYSTECTOMY PROCEDURE: HISTORICAL CHOLECYSTECTOMY COLONOSCOPY 02/16/2024 PROCEDURE: HISTORICAL COLONOSCOPY; COMMENT: muslu 1 polyp 5 yrs Medical History Medical History Date Comments Heart murmur DX:Heart murmur; COMMENT: [facility] Vitamin deficiency DX:Vitamin de ficiency Morbid obesity with BMI of 5 0.0-59.9, adult ([facility] V24, [facility]/HCC V28) 07/08/2014 DX:Morbid obesity wit h BMI of 50.0-59.9, adult ([facility]) Tricuspid valve regurgitation 07/08/2014 DX :Tricuspid valve [...] for your loved ones. For example, child protection specialist or elderly care for an older adult? [...] 10:30 AM EST Office Visit Adult Medicine [address] [phone] Santiago Love PA [address] [place] [phone] Health Maintenance Due Date Last Done Comments [...] TESTING Routine 05/07/2025 10:21 AM EDT Wheezing HM COLONOSCOPY Routine 02/16/2024 DXA BONE DENSITY STUDY [...] year. [facility]amm[facility] [address], [address] -------- FINAL REPORT -------- Dictated By: Charlie Alicea Dictated Date: 07/18/2025 15:53 ET Assigned Physician: Charlie Alicea Reviewed and Electronically Signed By: Charlie Alicea Signed Date: 07/18/2025 16:03 ET Workstation ID: [id number] Transcribed By: Self Edit Transcribed Date: 07/18/2025 15:53 ET Narrative 07/18/2025 4:03 PM EDT EXAM: SCREENING MAMMOGRAPHY, BILATERAL HISTORY: SCREENING. Left breast surgery for reportedly benign process during the . COMPARISON: 04/28/17 TECHNIQUE: Synthesized CC and MLO projections of each breast. Tomosynthesis of each breast in the CC and MLO projections. ADDITIONAL IMAGING: None Computer-aided detection was employed with the [employer] AI 3-D. TISSUE DENSITY: There are [...] None Computer-aided detection was employed with the [employer] AI 3-D. TISSUE DENSITY: There are [...] year. [facility]ammography location[facility] at [address], [address] -------- FINAL REPORT -------- Dictated By: Charlie Alicea Dictated Date: 07/18/2025 15:53 ET Assigned Physician: Charlie Alicea Reviewed and Electronically Signed By: Charlie Alicea Signed Date: 07/18/2025 16:03 ET Workstation ID: [id number] Transcribed By: Self Edit Transcribed Date: 07/18/2025 15:53 ET us Iveth Timbo RILEY IMG BI PROCEDURES Final Result * (ABNORMAL) Alkaline phosphatase, isoenzymes (07/10/2025 1:20 PM EDT) Alkaline Phosphatase 151 37 - 153 U/L 07/24/2025 10:43 PM EDT [facility] Comment: Test Performed at: [facility] [address] [place] [phone] Millie Antonio MD, PhD, GUERITA Alk Phos [...] EDT [facility] Comment: Test Performed at: [facility] [address] [place] [phone] Millie Antonio MD, PhD, GUERITA Alk Phos Isoenzyme Macrohepatic TNP 07/24/2025 10:43 PM EDT [facility] Alkaline Phosphatase Isoenzymes Interpretation TNP 07/24/2025 10:43 PM EDT [facility] Blood Venous blood specimen / Unknown Venipuncture / Unknown 07/10/2025 1:20 PM EDT 07/10/2025 1:20 PM EDT us Iveth Timbo [facility] LAB BLOOD ORDERABLES Edited Resu lt - Final [facility] [address] [place] [address] * (ABNORMAL) Parathyroid hormone intact (07/10/2025 1:20 PM EDT) PTH 287.3(H) 18.5 - 88.0 pcg/mL LAB CHEMISTRY METHOD 07/10/2025 6:26 PM T [facility] Blood Venous blood specimen / Unknown Venipuncture / Unknown 07/10/2025 1:20 PM EDT 07/10/2025 1:20 PM EDT us Iveth Timbo [facility] LAB BLOOD ORDERABLES Final Resul t [facility] [address] [place] [address], [place] [phone] * Basic metabolic panel (07/10/2025 1:20 PM EDT) Only the most recent of2 resultswithin the time period is included. Sodium 137 133 - 145 mmol/L LAB CHEMISTRY METHOD 07/10/2025 5:43 PM [facility] Potassium 3.9 3.5 - 5.5 mmol/L LAB CHEMISTRY METHOD 07/10/2025 5:43 PM [facility] Chloride 104 96 - 110 mmol/L LAB CHEMISTRY METHOD 07/10/2025 5:43 PM [facility] CO2 27 21 - 32 mmol/L LAB CHEMISTRY METHOD 07/10/2025 5:43 PM [facility] Anion Gap 6 3 - 11 LAB CHEMISTRY METHOD 07/10/2025 5:43 PM [facility] Glucose 97 70 - 100 mg/dL LAB CHEMISTRY METHOD 07/10/2025 5:43 PM [facility] BUN 18 5 - 25 mg/dL LAB CHEMISTRY METHOD 07/10/2025 5:43 PM [facility] Creatinine 0.71 0.50 - 1.10 mg/dL LAB CHEMISTRY METHOD 07/10/2025 5:43 PM [facility] eGFR 92 >=60 mL/min/1. 73m2 LAB CHEMISTRY METHOD 07/10/2025 5:43 PM [facility] Comment:Calculation based on the Chronic Kidney Disease Epidemiology Collaboration (CKD-EPI) equation refit without adjustment for race. BUN/Creatinine Ratio 25.4 LAB CHEMISTRY METHOD 07/10/2025 5:43 PM EDT [facility] Calcium 9.1 8.5 - 10.5 mg/dL LAB CHEMISTRY METHOD 07/10/2025 5:43 PM EDT [facility] Blood Venous blood specimen / Unknown Venipuncture / Unknown 07/10/2025 1:20 PM EDT 07/10/2025 1:20 PM EDT us Iveth Timbo [facility] BLOOD ORDERABLES Final Resul t [facility] [address] [place] [address], [place] [phone] * US Pelvis Non OB Complete w [...] Signed Date: 07/10/2025 13:44 ET Workstation ID: [id number] Transcribed By: Self Edit Transcribed Date: 07/10/2025 [...] Signed Date: 07/10/2025 13:44 ET Workstation ID: [id number] Transcribed By: Self Edit Transcribed Date: 07/10/2025 13:36 ET us Iveth Timbo MOSCOSO US PROCEDURES Final Result * CT Abdomen [...] Signed Date: 07/01/2025 14:44 ET Workstation ID: [id number] Transcribed By: Self Edit Transcribed Date: 07/01/2025 [...] Signed Date: 07/01/2025 14:44 ET Workstation ID: [id number] Transcribed By: Self Edit Transcribed Date: 07/01/2025 14:28 ET us Iveth Timbo RILEY IMJuventino CT PROCEDURES Final Result * Thyroid stimulating hormone with reflex to free t4 and free t3 (06/28/2025 10:05 AM EDT) Only the most recent of2 resultswithin the time period is included. TSH 3.71 0.40 - 4.00 mcIU/mL LAB CHEMISTRY METHOD 06/28/2025 3:22 PM EDT [facility] Blood Venous blood specimen / Unknown Venipuncture / Unknown 06/28/2025 10:05 AM EDT 06/28/2025 10:05 AM EDT us Iveth Izquierdo PA LAB BLOOD ORDERABLES Final Resul t Performing Organization Address [facility]/ZIP Co de Phone Number [facility] [address] [place] [address], [place] [phone] * GGT (06/28/2025 10:05 AM EDT) GGT 38 7 - 64 unit/L LAB CHEMISTRY METHOD 06/28/2025 1:35 PM EDT [facility] Blood Venous blood specimen / Unknown Venipuncture / Unknown 06/28/2025 10:05 AM EDT 06/28/2025 10:05 AM EDT us Iveth Izquierdo PA LAB BLOOD ORDERABLES Final Resul t Performing Organization Address [facility] Co de Phone Number [facility] [address] [place] [address], [place] [phone] * US Abdomen Limited (06/25/2025 8:42 AM [...] dilatation. Pancreas obscured by bowel gas. POS [id number] -------- FINAL REPORT -------- Dictated By: Jovana Robles Dictated Date: 06/25/2025 09:51 ET Assigned Physician: Jovana Robles Reviewed and Electronically Signed By: Jovana Robles Signed Date: 06/25/2025 11:00 ET Workstation ID: [id number] Transcribed By: Self Edit Transcribed Date: 06/25/2025 [...] dilatation. Pancreas obscured by bowel gas. POS [id number] -------- FINAL REPORT -------- Dictated By: Jovana Robles Dictated Date: 06/25/2025 09:51 ET Assigned Physician: Jovana Robles Reviewed and Electronically Signed By: Jovana Robles Signed Date: 06/25/2025 11:00 ET Workstation ID: [id number] Transcribed By: Self Edit Transcribed Date: 06/25/2025 10:04 ET us Iveth RILEY IMG US PROCEDURES Final Result * Free thyroxine with reflex to free triiodothyronine (06/13/2025 10:23 AM EDT) Free T4 1.02 0.70 - 1.80 ng/dL LAB CHEMISTRY METHOD 06/13/2025 2:59 PM EDT [facility] Blood Venous blood specimen / Unknown Venipuncture / Unknown 06/13/2025 10:23 AM EDT 06/13/2025 10:23 AM EDT us Iveth RILEY LAB BLOOD ORDERABLES Final Resul t [facility] [address] [place] [address], [place] [phone] * (ABNORMAL) Lipid panel with reflex to direct LDL (06/13/2025 10:23 AM EDT) Cholesterol 216(H) 0 - 200 mg/dL LAB CHEMISTRY METHOD 06/13/2025 1:44 PM EDT [facility] Triglycerides 191(H) 0 - 150 mg/dL LAB CHEMISTRY METHOD 06/13/2025 1:44 PM EDT [facility] HDL 76 >=40 mg/dL LAB CHEMISTRY METHOD 06/13/2025 1:44 PM EDT [facility] LDL Calculated 102(H) 0 - 100 mg/dL LAB CHEMISTRY METHOD 06/13/2025 1:44 PM EDT [facility] VLDL Cholesterol Fernando 38.2 mg/dL LAB CHEMISTRY METHOD 06/13/2025 1:44 PM EDT [facility] Non HDL Chol. (LDL+VLDL) 140 <145 mg/dL LAB CHEMISTRY METHOD 06/13/2025 1:44 PM EDT [facility] Chol/HDL Ratio 2.8 0.0 - 4.4 LAB CHEMISTRY METHOD 06/13/2025 1:44 PM EDT [facility] Blood Venous blood specimen / Unknown Venipuncture / Unknown 06/13/2025 10:23 AM EDT 06/13/2025 10:23 AM EDT us Iveth Izquierdo PA LAB BLOOD ORDERABLES Final Resul t Performing Organization Address City/[facility] de Phone Number [facility] [address] [place] [address], [place] [phone] * Iron and TIBC (06/13/2025 10:23 AM EDT) Iron 132 40 - 150 mcg/dL LAB CHEMISTRY METHOD 06/13/2025 1:44 PM EDT [facility] TIBC 428 250 - 450 mcg/dL LAB CHEMISTRY METHOD 06/13/2025 1:44 PM EDT [facility] Iron Saturation 31 15 - 50 % LAB CHEMISTRY METHOD 06/13/2025 1:44 PM EDT [facility] Blood Venous blood specimen / Unknown Venipuncture / Unknown 06/13/2025 10:23 AM EDT 06/13/2025 10:23 AM EDT us Iveth Izquierdo PA LAB BLOOD ORDERABLES Final Resul t [facility] [address] [place] [address], [place] [phone] * (ABNORMAL) Vitamin D 25 hydroxy (06/13/2025 10:23 AM EDT) Vit D, 25-Hydroxy 20.2(L) 30.0 - 80.0 ng/mL LAB CHEMISTRY METHOD 06/13/2025 2:12 PM EDT [facility] Blood Venous blood specimen / Unknown Venipuncture / Unknown 06/13/2025 10:23 AM EDT 06/13/2025 10:23 AM EDT us Iveth Izquierdo PA LAB BLOOD ORDERABLES Final Resul t Performing Organization Address [facility]/ZIP Co de Phone Number [facility] [address] [place] [address], * Triiodothyronine free (06/13/2025 10:23 AM EDT) T3, Free 297 230 - 420 pcg/dL LAB CHEMISTRY METHOD 06/13/2025 3:37 PM EDT [facility] Blood Venous blood specimen / Unknown Venipuncture / Unknown 06/13/2025 10:23 AM EDT 06/13/2025 10:23 AM EDT us Iveth RILEY LAB BLOOD ORDERABLES Final Resul t [facility] [address] [place] [address], [place] [phone] * Magnesium (06/13/2025 10:23 AM EDT) Magnesium 2.2 1.9 - 2.6 mg/dL LAB CHEMISTRY METHOD 06/13/2025 1:04 PM EDT [facility] Blood Venous blood specimen / Unknown Venipuncture / Unknown 06/13/2025 10:23 AM EDT 06/13/2025 10:23 AM EDT us Iveth RILEY LAB BLOOD ORDERABLES Final Resul t Performing Organization Address [facility]/ZIP Co de Phone Number [facility] [address] [place] [address], [place] [phone] * Hemoglobin A1c (06/13/2025 10:23 AM EDT) [facility] Hemoglobin A1C 5.9 <6.5 % LAB CHEMISTRY METHOD 06/13/2025 1:29 PM EDT [facility] Mean Bld Glu Estim. 123 mg/dL LAB CHEMISTRY METHOD 06/13/2025 1:29 PM EDT [facility] Blood Venous blood specimen / Unknown Venipuncture / Unknown 06/13/2025 10:23 AM EDT 06/13/2025 10:23 AM EDT us Iveth RILEY LAB BLOOD ORDERABLES Final Resul t Performing Organization Address [facility] de Phone Number [facility] [address] [place] [address], [place] [phone] * (ABNORMAL) Vitamin B12 (06/13/2025 10:23 AM EDT) [facility] Vitamin B-12 1,723(H) 250 - 900 pcg/mL LAB CHEMISTRY METHOD 06/13/2025 1:44 PM EDT [facility] Blood Venous blood specimen / Unknown Venipuncture / Unknown 06/13/2025 10:23 AM EDT 06/13/2025 10:23 AM EDT us Iveth Izquierdo PA LAB BLOOD ORDERABLES Final Resul t Performing Organization Address [facility]/ZIP Co de Phone Number [facility] [address] [place] [address], [place] [phone] * (ABNORMAL) Comprehensive metabolic panel (06/13/2025 10:23 AM EDT) Sodium 140 133 - 145 mmol/L LAB CHEMISTRY METHOD 06/13/2025 1:44 PM [facility] Potassium 4.0 3.5 - 5.5 mmol/L LAB CHEMISTRY METHOD 06/13/2025 1:44 PM [facility] Chloride 106 96 - 110 mmol/L LAB CHEMISTRY METHOD 06/13/2025 1:44 PM [facility] CO2 22 21 - 32 mmol/L LAB CHEMISTRY METHOD 06/13/2025 1:44 PM [facility] Anion Gap 12(H) 3 - 11 LAB CHEMISTRY METHOD 06/13/2025 1:44 PM [facility] Glucose 124(H) 70 - 100 mg/dL LAB CHEMISTRY METHOD 06/13/2025 1:44 PM [facility] BUN 16 5 - 25 mg/dL LAB CHEMISTRY METHOD 06/13/2025 1:44 PM [facility] Creatinine 1.08 0.50 - 1.10 mg/dL LAB CHEMISTRY METHOD 06/13/2025 1:44 PM [facility] eGFR 56(L) >=60 mL/min/1. 73m2 LAB CHEMISTRY METHOD 06/13/2025 1:44 PM [facility] Comment:Calculation based on the Chronic Kidney Disease Epidemiology Collaboration (CKD-EPI) equation refit without adjustment for race. BUN/Creatinine Ratio 14.8 LAB CHEMISTRY METHOD 06/13/2025 1:44 PM [facility] Calcium 9.6 8.5 - 10.5 mg/dL LAB CHEMISTRY METHOD 06/13/2025 1:44 PM [facility] AST (SGOT) 40 10 - 42 unit/L LAB CHEMISTRY METHOD 06/13/2025 1:44 PM [facility] ALT (SGPT) 32 10 - 60 unit/L LAB CHEMISTRY METHOD 06/13/2025 1:44 PM EDT [facility] Alkaline Phosphatase 184(H) 42 - 121 unit/L LAB CHEMISTRY METHOD 06/13/2025 1:44 PM EDT [facility] Total Protein 7.7 6.0 - 8.0 g/dL LAB CHEMISTRY METHOD 06/13/2025 1:44 PM EDT [facility] Albumin 4.2 3.2 - 5.0 g/dL LAB CHEMISTRY METHOD 06/13/2025 1:44 PM EDT [facility] Total Bilirubin 0.9 0.0 - 1.4 mg/dL LAB CHEMISTRY METHOD 06/13/2025 1:44 PM EDT [facility] Blood Venous blood specimen / Unknown Venipuncture / Unknown 06/13/2025 10:23 AM EDT 06/13/2025 10:23 AM EDT us Iveth Timbo PA LAB BLOOD ORDERABLES Final Resul t [facility] [address] [place] [address], * XR Chest 2 Views (06/13/2025 10:00 [...] Signed Date: 06/13/2025 10:21 ET Workstation ID: [id number] Transcribed By: Self Edit Transcribed Date: 06/13/2025 [...] Signed Date: 06/13/2025 10:21 ET Workstation ID: [id number] Transcribed By: Self Edit Transcribed Date: 06/13/2025 10:19 ET us Iveth Timbo [facility] IMG XR PROCEDURES Final Result * Pulmonary [...] Iveth RILEY PFT ORDERABLES Final Result * Colonoscopy [...] (World Health Organization Fracture Risk Assessment) [facility] Department of Internal Medicine recommends using [...] (World Health Organization Fracture Risk Assessment) [facility] Department of Internal Medicine recommendsusing National [...] over-estimation of fracture risk by FRAX. Santiago D Staropoli PA IMG DXA PROCEDURES Final Result * Hm Hepatitis C Screening (08/14/2014) Hepatitis C Screening Abstracted us Historical Provider MD HEALTH MAINTENANCE Final Result from Last 3 Months or Most Recently Relevant to Health Maintenance Insurance [employer] MEDICARE [place]ICAID - [place] Care Teams Artificial Intelligence Specialist Relationship Specialty Start Date End Date Santiago Love PA [address] [place] [address] PCP - General Internal Medicine 05/20/21
== END 2025-08-06 13:36 | disposition home or self-care (01) ==
LOC: HO.HMGCX 13:35
PROVIDERS: PCP Physician Assistant Medical; Visit Provider Nurse Practitioner Family
DX: R06.09 Other forms of dyspnea (principal)
CPT/HCPCS: 71046

== ENCOUNTER → 2025-08-06 13:41 | Outpatient (BNV) | payer MEDICARE, SELFPAY | PROVIDERS: PCP Physician Assistant Medical; Visit Provider Radiology Diagnostic Radiology | DX: R06.09 Other forms of dyspnea (principal) | CPT/HCPCS: 71046 ==

== ENCOUNTER → 2025-08-22 19:30 | Outpatient (REF) | payer MEDICARE, SELFPAY ==
--- OUTSIDE RECORDS SUMMARY | 2025-08-22 21:24 | XMS_ITS | Clinical Summary ---
Author Organization [address] Address [address] [place] [phone] Phone Care Team Providers Care Box Maker Wood Name Role Phone Santiago Love Primary Care Provider [phone] Allergies Active Allergy Reactions Criticality Noted Date [...] propionate (FLONASE) 50 mcg/actuation nasal spray 1 [place] by Nasal route daily. 2 Active meclizine [...] obesity with BMI of 5 0.0-59.9, adult ([facility] V24, [facility] V28) 07/08/2024 Osteopenia 04/01/2022 Depression with [...] Plan: Followed by Dr. Pickering with [facility]. Continue Lasix at current dose. Continue [...] EDT [facility]counter [facility] at [address] [phone] Breast cancer screening by mammogram Discharge Disposition: Home or Self Care 07/10/2025 12:20 PM EDT - 07/10/2025 11:59 PM EDT Hospital Encounter Radiology Department - [address] [phone] Abnormal finding present on diagnostic imaging of uterus Discharge Disposition: Home or Self Care 07/01/2025 1:09 PM EDT - 07/01/2025 11:59 PM EDT Hospital Encounter CT Scan - [address] [phone] Abnormal ultrasound of liver; Diaphragmatic eventration Discharge Disposition: Home or Self Care 06/28/2025 Telephone Adult Medicine [address] [phone] Iveth Izquierdo PA 06/25/2025 8:23 AM EDT - 06/25/2025 11:59 PM EDT Hospital Encounter Radiology Department - [address] [phone] Diaphragmatic eventration Discharge Disposition: Home or Self Care 06/13/2025 9:52 AM EDT - 06/13/2025 11:59 PM EDT Hospital Encounter XRAY - [address] [phone] Wheezing Discharge Disposition: Home or Self Care 06/13/2025 9:30 AM EDT Office Visit Adult Medicine [address] [phone] Iveth Izquierdo PA Mixed hyperlipidemia (Primary Dx); Prediabetes; Subclinical hypothyroidism; Vitamin B12 deficiency; Vitamin D deficiency; History of iron deficiency; Hypomagnesemia; Pulmonary hypertension ([facility] V24, CMS/HCC V28); SONJA (obstructive sleep apnea); Anxiety and depression; Fibromyalgia; Wheezing; Morbid obesity with BMI of 50.0-59.9, adult ([facility] V24, [facility] V28) from Last 3 Months Immunizations Immunization Administration Dates Next Due Influenza Quadravalent, MDCK [...] Date Comments Heart murmur DX:Heart murmur; COMMENT: [facility] Cardiology Vitamin deficiency DX:Vitamin de ficiency Morbid obesity with BMI of 5 0.0-59.9, adult (CMS/HCC V24, CMS/HCC V28) 07/08/2014 DX:Morbid obesity wit h BMI of 50.0-59.9, adult ([facility]) Tricuspid valve regurgitation 07/08/2014 DX :Tricuspid [...] for your loved ones. For example, child guidance counselor or elderly care for an older adult? [...] Date Recorded What is your living situation? Unrecognized valu e 03/14/2025 Comments No Sex and Gender Information [...] 10:30 AM EST Office Visit Adult Medicine [address] [phone] Santiago Love, OSVALDO [address] [place] [phone] Health Maintenance Due Date Last Done Comments [...] Procedure Name Priority Date/Time Associated Diagnosis Comments EXTERNAL XRAY REPORT 08/06/2025 MG MAMMO DIGITAL SCREENING BILAT Routine 07/17/2025 [...] Routine 06/13/2025 10:0 0 AM EDT Wheezing COLONOSCOPY Routine 02/16/2024 DXA BONE DENSITY STUDY 1+ SITS AXIAL SKEL Routine 04/01/2022 2:36 PM EDT Encounter for screening for osteoporosis HEPATITIS C SCREENING Routine 08/14/2014 from Last 3 Months or Most Recently Relevant to Health Maintenance Results * External Xray Report (08/06/2025) Anatomical Region Laterality Modality Radiographic Linnea ging us Provider [facility] XR PROCEDURES Final Result * MG Mammo Digital Screening bilat (07/17/2025 [...] year. [facility]amm[facility] location[facility] at [address], [id number] -------- FINAL REPORT -------- Dictated By: Charlie Alicea Dictated Date: 07/18/2025 15:53 ET Assigned Physician: Charlie Alicea Reviewed and Electronically Signed By: Charlie Alicea Signed Date: 07/18/2025 16:03 ET Workstation ID: [id number] Transcribed By: Self Edit Transcribed Date: 07/18/2025 15:53 ET Narrative 07/18/2025 4:03 PM EDT EXAM: SCREENING MAMMOGRAPHY, BILATERAL HISTORY: SCREENING. Left breast surgery for reportedly benign process during the . COMPARISON: 04/28/17 TECHNIQUE: Synthesized CC and MLO projections of each breast. Tomosynthesis of each breast in the CC and MLO projections. ADDITIONAL IMAGING: None Computer-aided detection was employed with the [employer] AI 3-D. TISSUE DENSITY: There are scattered [...] None Computer-aided detection was employed with the i[employer] AI 3-D. TISSUE DENSITY: There are [...] year. [facility]amm[facility] location[facility] at [address], [address] -------- FINAL REPORT -------- Dictated By: Charlie Alicea Dictated Date: 07/18/2025 15:53 ET Assigned Physician: Charlie Alicea Reviewed and Electronically Signed By: Charlie Alicea Signed Date: 07/18/2025 16:03 ET Workstation ID: [id number] Transcribed By: Self Edit Transcribed Date: 07/18/2025 15:53 ET us Iveth Timbo [facility] IMG BI PROCEDURES Final Result * (ABNORMAL) Alkaline phosphatase, isoenzymes (07/10/2025 1:20 PM EDT) Alkaline Phosphatase 151 37 - 153 U/L 07/24/2025 10:43 PM EDT [facility] Comment: Test Performed at: [facility] [address] [place] [phone] Millie Antonio MD, PhD, GUERITA Alk Phos [...] EDT [facility] Comment: Test Performed at: [facility] [address] [place] [phone] Millie Antonio MD, PhD, GUERITA Alk Phos Isoenzyme Macrohepatic TNP 07/24/2025 10:43 PM EDT [facility] Alkaline Phosphatase Isoenzymes Interpretation TNP 07/24/2025 10:43 PM EDT [facility] Blood Venous blood specimen / Unknown Venipuncture / Unknown 07/10/2025 1:20 PM EDT 07/10/2025 1:20 PM EDT us Iveth Timbo [facility] BLOOD ORDERABLES Edited Resu lt - Final [facility] [address] [place] [address] * (ABNORMAL) Parathyroid hormone intact (07/10/2025 1:20 PM EDT) PTH 287.3(H) 18.5 - 88.0 pcg/mL LAB CHEMISTRY METHOD 07/10/2025 6:26 PM EDT [facility] Blood Venous blood specimen / Unknown Venipuncture / Unknown 07/10/2025 1:20 PM EDT 07/10/2025 1:20 PM EDT us Iveth RILEY LAB BLOOD ORDERABLES Final Resul t [facility] [address] [place] [address], [place] [phone] * Basic metabolic panel (07/10/2025 1:20 PM EDT) Only the most recent of2 resultswithin the time period is included. Sodium 137 133 - 145 mmol/L LAB CHEMISTRY METHOD 07/10/2025 5:43 PM [facility] Potassium 3.9 3.5 - 5.5 mmol/L LAB CHEMISTRY METHOD 07/10/2025 5:43 PM [facility] Chloride 104 96 - 110 mmol/L LAB CHEMISTRY METHOD 07/10/2025 5:43 PM [facility] CO2 27 21 - 32 mmol/L LAB CHEMISTRY METHOD 07/10/2025 5:43 PM [facility] Anion Gap 6 3 - 11 LAB CHEMISTRY METHOD 07/10/2025 5:43 PM [facility] Glucose 97 70 - 100 mg/dL LAB CHEMISTRY METHOD 07/10/2025 5:43 PM [facility] BUN 18 5 - 25 mg/dL LAB CHEMISTRY METHOD 07/10/2025 5:43 PM [facility] Creatinine 0.71 0.50 - 1.10 mg/dL LAB CHEMISTRY METHOD 07/10/2025 5:43 PM [facility] eGFR 92 >=60 mL/min/1. 73m2 LAB CHEMISTRY METHOD 07/10/2025 5:43 PM [facility] Comment:Calculation based on the Chronic Kidney Disease Epidemiology Collaboration (CKD-EPI) equation refit without adjustment for race. BUN/Creatinine Ratio 25.4 LAB CHEMISTRY METHOD 07/10/2025 5:43 PM EDT [facility] Calcium 9.1 8.5 - 10.5 mg/dL LAB CHEMISTRY METHOD 07/10/2025 5:43 PM EDT [facility] Blood Venous blood specimen / Unknown Venipuncture / Unknown 07/10/2025 1:20 PM EDT 07/10/2025 1:20 PM EDT us Iveth Timbo [facility] BLOOD ORDERABLES Final Resul t [facility] [address] [place] [address], [place] [phone] * US Pelvis Non OB Complete w [...] Signed Date: 07/10/2025 13:44 ET Workstation ID: [id number] Transcribed By: Self Edit Transcribed Date: 07/10/2025 [...] Signed Date: 07/10/2025 13:44 ET Workstation ID: [id number] Transcribed By: Self Edit Transcribed Date: 07/10/2025 [...] Signed Date: 07/01/2025 14:44 ET Workstation ID: [id number] Transcribed By: Self Edit Transcribed Date: 07/01/2025 [...] Signed Date: 07/01/2025 14:44 ET Workstation ID: [id number] Transcribed By: Self Edit Transcribed Date: 07/01/2025 14:28 ET us Iveth Timbo MOSCOSO CT PROCEDURES Final Result * Thyroid stimulating hormone with reflex to free t4 and free t3 (06/28/2025 10:05 AM EDT) Only the most recent of2 resultswithin the time period is included. TSH 3.71 0.40 - 4.00 mcIU/mL LAB CHEMISTRY METHOD 06/28/2025 3:22 PM EDT [facility] Blood Venous blood specimen / Unknown Venipuncture / Unknown 06/28/2025 10:05 AM EDT 06/28/2025 10:05 AM EDT us Iveth Izquierdo PA LAB BLOOD ORDERABLES Final Resul t Performing Organization Address [facility]/ZIP Co de Phone Number [facility] [address] [place] [address], [place] [phone] * GGT (06/28/2025 10:05 AM EDT) GGT 38 7 - 64 unit/L LAB CHEMISTRY METHOD 06/28/2025 1:35 PM EDT [facility] Blood Venous blood specimen / Unknown Venipuncture / Unknown 06/28/2025 10:05 AM EDT 06/28/2025 10:05 AM EDT us Iveth Izquierdo PA LAB BLOOD ORDERABLES Final Resul t Performing Organization Address [facility] Co de Phone Number [facility] [address] [place] [address], [place] [phone] * US Abdomen Limited (06/25/2025 8:42 AM [...] dilatation. Pancreas obscured by bowel gas. POS [id number] -------- FINAL REPORT -------- Dictated By: Jovana Robles Dictated Date: 06/25/2025 09:51 ET Assigned Physician: Jovana Robles Reviewed and Electronically Signed By: Jovana Robles Signed Date: 06/25/2025 11:00 ET Workstation ID: [id number] Transcribed By: Self Edit Transcribed Date: 06/25/2025 [...] dilatation. Pancreas obscured by bowel gas. POS [id number] -------- FINAL REPORT -------- Dictated By: Jovana Robles Dictated Date: 06/25/2025 09:51 ET Assigned Physician: Jovana Robles Reviewed and Electronically Signed By: Jovana Robles Signed Date: 06/25/2025 11:00 ET Workstation ID: [id number] Transcribed By: Self Edit Transcribed Date: 06/25/2025 10:04 ET us Iveth Timbo [facility] IMG US PROCEDURES Final Result * Free thyroxine with reflex to free triiodothyronine (06/13/2025 10:23 AM EDT) Free T4 1.02 0.70 - 1.80 ng/dL LAB CHEMISTRY METHOD 06/13/2025 2:59 PM EDT [facility] Blood Venous blood specimen / Unknown Venipuncture / Unknown 06/13/2025 10:23 AM EDT 06/13/2025 10:23 AM EDT us Iveth Timbo [facility] LAB BLOOD ORDERABLES Final Resul t [facility] [address] [place] [address], [place] [phone] * (ABNORMAL) Lipid panel with reflex to direct LDL (06/13/2025 10:23 AM EDT) Cholesterol 216(H) 0 - 200 mg/dL LAB CHEMISTRY METHOD 06/13/2025 1:44 PM EDT [facility] Triglycerides 191(H) 0 - 150 mg/dL LAB CHEMISTRY METHOD 06/13/2025 1:44 PM EDT [facility] HDL 76 >=40 mg/dL LAB CHEMISTRY METHOD 06/13/2025 1:44 PM EDT [facility] LDL Calculated 102(H) 0 - 100 mg/dL LAB CHEMISTRY METHOD 06/13/2025 1:44 PM EDT [facility] VLDL Cholesterol Fernando 38.2 mg/dL LAB CHEMISTRY METHOD 06/13/2025 1:44 PM EDT [facility] Non HDL Chol. (LDL+VLDL) 140 <145 mg/dL LAB CHEMISTRY METHOD 06/13/2025 1:44 PM EDT [facility] Chol/HDL Ratio 2.8 0.0 - 4.4 LAB CHEMISTRY METHOD 06/13/2025 1:44 PM EDT [facility] Blood Venous blood specimen / Unknown Venipuncture / Unknown 06/13/2025 10:23 AM EDT 06/13/2025 10:23 AM EDT us Iveth Izquierdo PA LAB BLOOD ORDERABLES Final Resul t Performing Organization Address City/[facility]/ZIP W[place] de Phone Number [facility] [address] [place] [address], [place] [phone] * Iron and TIBC (06/13/2025 10:23 AM EDT) Iron 132 40 - 150 mcg/dL LAB CHEMISTRY METHOD 06/13/2025 1:44 PM EDT [facility] TIBC 428 250 - 450 mcg/dL LAB CHEMISTRY METHOD 06/13/2025 1:44 PM EDT [facility] Iron Saturation 31 15 - 50 % LAB CHEMISTRY METHOD 06/13/2025 1:44 PM EDT [facility] Blood Venous blood specimen / Unknown Venipuncture / Unknown 06/13/2025 10:23 AM EDT 06/13/2025 10:23 AM EDT us Iveth Izquierdo PA LAB BLOOD ORDERABLES Final Resul t Performing Organization Address City/[facility]/ZIP Co de Phone Number [facility] [address] [place] [address], [place] [phone] * (ABNORMAL) Vitamin D 25 hydroxy (06/13/2025 10:23 AM EDT) Vit D, 25-Hydroxy 20.2(L) 30.0 - 80.0 ng/mL LAB CHEMISTRY METHOD 06/13/2025 2:12 PM EDT [facility] Blood Venous blood specimen / Unknown Venipuncture / Unknown 06/13/2025 10:23 AM EDT 06/13/2025 10:23 AM EDT us Iveth Izquierdo PA LAB BLOOD ORDERABLES Final Resul t [facility] [address] [place] [address], [place] [phone] * Triiodothyronine free (06/13/2025 10:23 AM EDT) Pathologist [facility] T3, Free 297 230 - 420 pcg/dL LAB CHEMISTRY METHOD 06/13/2025 3:37 PM EDT [facility] Blood Venous blood specimen / Unknown Venipuncture / Unknown 06/13/2025 10:23 AM EDT 06/13/2025 10:23 AM EDT us Iveth Izquierdo PA LAB BLOOD ORDERABLES Final Resul t [facility] [address] [place] [address], [place] [phone] * Magnesium (06/13/2025 10:23 AM EDT) Pathologist [facility] Magnesium 2.2 1.9 - 2.6 mg/dL LAB CHEMISTRY METHOD 06/13/2025 1:04 PM EDT [facility] Blood Venous blood specimen / Unknown Venipuncture / Unknown 06/13/2025 10:23 AM EDT 06/13/2025 10:23 AM EDT Iveth Izquierdo PA LAB BLOOD ORDERABLES Final Resul t Performing Organization Address City/[facility]/ZIP Co de Phone Number [facility] [address] [place] [address], [place] [phone] * Hemoglobin A1c (06/13/2025 10:23 AM EDT) Hemoglobin A1C 5.9 <6.5 % LAB CHEMISTRY METHOD 06/13/2025 1:29 PM EDT [facility] Mean Bld Glu Estim. 123 mg/dL LAB CHEMISTRY METHOD 06/13/2025 1:29 PM EDT [facility] Blood Venous blood specimen / Unknown Venipuncture / Unknown 06/13/2025 10:23 AM EDT 06/13/2025 10:23 AM EDT us Iveth RILEY LAB BLOOD ORDERABLES Final Resul t Performing Organization Address [facility] Co de Phone Number [facility] [address] [place] [address], [place] [phone] * (ABNORMAL) Vitamin B12 (06/13/2025 10:23 AM EDT) Pathologist [facility] Vitamin B-12 1,723(H) 250 - 900 pcg/mL LAB CHEMISTRY METHOD 06/13/2025 1:44 PM EDT [facility] Blood Venous blood specimen / Unknown Venipuncture / Unknown 06/13/2025 10:23 AM EDT 06/13/2025 10:23 AM EDT Iveth Izquierdo PA LAB BLOOD ORDERABLES Final Resul t Performing Organization Address [facility]/ZIP Co de Phone Number [facility] [address] [place] [address], [place] [phone] * (ABNORMAL) Comprehensive metabolic panel (06/13/2025 10:23 AM EDT) [facility] Signature Sodium 140 133 - 145 mmol/L LAB CHEMISTRY METHOD 06/13/2025 1:44 PM [facility] Potassium 4.0 3.5 - 5.5 mmol/L LAB CHEMISTRY METHOD 06/13/2025 1:44 PM [facility] Chloride 106 96 - 110 mmol/L LAB CHEMISTRY METHOD 06/13/2025 1:44 PM [facility] CO2 22 21 - 32 mmol/L LAB CHEMISTRY METHOD 06/13/2025 1:44 PM [facility] Anion Gap 12(H) 3 - 11 LAB CHEMISTRY METHOD 06/13/2025 1:44 PM [facility] Glucose 124(H) 70 - 100 mg/dL LAB CHEMISTRY METHOD 06/13/2025 1:44 PM [facility] BUN 16 5 - 25 mg/dL LAB CHEMISTRY METHOD 06/13/2025 1:44 PM [facility] Creatinine 1.08 0.50 - 1.10 mg/dL LAB CHEMISTRY METHOD 06/13/2025 1:44 PM [facility] eGFR 56(L) >=60 mL/min/1. 73m2 LAB CHEMISTRY METHOD 06/13/2025 1:44 PM [facility] Comment:Calculation based on the Chronic Kidney Disease Epidemiology Collaboration (CKD-EPI) equation refit without adjustment for race. BUN/Creatinine Ratio 14.8 LAB CHEMISTRY METHOD 06/13/2025 1:44 PM [facility] Calcium 9.6 8.5 - 10.5 mg/dL LAB CHEMISTRY METHOD 06/13/2025 1:44 PM [facility] AST (SGOT) 40 10 - 42 unit/L LAB CHEMISTRY METHOD 06/13/2025 1:44 PM [facility] ALT (SGPT) 32 10 - 60 unit/L LAB CHEMISTRY METHOD 06/13/2025 1:44 PM EDT [facility] Alkaline Phosphatase 184(H) 42 - 121 unit/L LAB CHEMISTRY METHOD 06/13/2025 1:44 PM EDT [facility] Total Protein 7.7 6.0 - 8.0 g/dL LAB CHEMISTRY METHOD 06/13/2025 1:44 PM EDT [facility] Albumin 4.2 3.2 - 5.0 g/dL LAB CHEMISTRY METHOD 06/13/2025 1:44 PM EDT [facility] Total Bilirubin 0.9 0.0 - 1.4 mg/dL LAB CHEMISTRY METHOD 06/13/2025 1:44 PM EDT [facility] Blood Venous blood specimen / Unknown Venipuncture / Unknown 06/13/2025 10:23 AM EDT 06/13/2025 10:23 AM EDT us Iveth Timbo PA LAB BLOOD ORDERABLES Final Resul t [facility] [address] [place] [address], [place] [phone] * XR Chest 2 Views (06/13/2025 10:00 [...] Signed Date: 06/13/2025 10:21 ET Workstation ID: [id number] Transcribed By: Self Edit Transcribed Date: 06/13/2025 [...] Signed Date: 06/13/2025 10:21 ET Workstation ID: [id number] Transcribed By: Self Edit Transcribed Date: 06/13/2025 10:19 ET us Iveth Timbo [facility] IMG XR PROCEDURES Final Result * Colonoscopy (02/16/2024) Colonoscopy No [...] on the World Health Organization criteria, Macy Brown should be classified as having osteopenia. This patient has a 7% risk of major osteoporotic fracture and a 0.5% risk of hip fracture over the next 10 years. (World Health Organization Fracture Risk Assessment) [facility] Department of Internal Medicine recommends using [...] on the World Health Organization criteria, Macy Brown shouldbe classified as having osteopenia. This patient has a 7% risk of majorosteoporotic fracture and a 0.5% risk of hip fracture over the next 10years. (World Health Organization Fracture Risk Assessment) [facility] Department of Internal Medicine recommendsusing National [...] of fracture risk by FRAX. Santiago RILEY IM DXA PROCEDURES Final Result * Hepatitis C Screening (08/14/2014) [facility] Hepatitis C Screening Abstracted Historical Provider HEALTH MAINTENANCE Final Result from Last 3 Months or Most Recently Relevant to Health Maintenance Insurance [employer] MEDICARE MEDICAID - [place] Care Teams Box Maker Wood Relationship Specialty Start Date End Date Santiago Love PA [address] [place] [address] PCP - General Internal Medicine 05/20/21
== END ==
LOC: HO.SL 19:30
PROVIDERS: PCP Physician Assistant Medical; Visit Provider Nurse Practitioner Family
DX: R40.0 Somnolence (principal); G47.33 Obstructive sleep apnea (adult) (pediatric); R06.83 Snoring
CPT/HCPCS: 95810

== ENCOUNTER → 2025-08-22 21:27 | Outpatient (BNV) | payer MEDICARE, SELFPAY | PROVIDERS: PCP Physician Assistant Medical; Visit Provider Internal Medicine | DX: G47.33 Obstructive sleep apnea (adult) (pediatric) (principal); R06.83 Snoring | CPT/HCPCS: 95810 ==

== ENCOUNTER 2025-11-20 09:50 | Outpatient (AMB) | payer MEDICARE, SELFPAY ==
--- NOTE | 2025-11-20 09:55 | A.OFFVIS_ITS ---
Vital Signs 11/20/25 09:56 Height 5 ft 4 in Weight 317 lb 6 oz BMI 54.5 BP 126/88 Blood Pressure Location Rt brachial Position Sitting Pulse 103 H Pulse Source Pulse Oximeter Pulse Oximetry (%) 94 Oxygen Delivery Method Room Air Intake Visit Reasons: Obstructive sleep apnea Allergies No Known Allergies Allergy (Verified 11/20/25 09:58) HPI Comments Details: Macy is a pleasant 70-year-old female with underlying obstructive sleep apnea, pulmonary hypertension and HTN. She was initially referred by PCP for managem ent of obstructive sleep apnea. She was diagnosed over 10 years ago and has been using a CPAP machine from [employer] since then, reports current machine is about 2-3 years old. Her last sleep study was in 2013, which revealed moderate SONJA with nocturnal hypoxemia. She continues to report significant daytime fatigue despite consistent use of CPAP questioning appropriate pressures. She has a history of pulmonary hypertension, although her last echocardiogram in 2021 showed normal pressures.The patient's history is significant for a tricuspid valve disorder, specifically moderate to severe tricuspid regurgitation, and a dilated right atrium, which could be related to pulmonary HTN. Her chart indicates a history of pulmonary hypertension, and she recalls undergoing a cardiac catheterization with Dr. Correa at [facility] a few years ago. No records to review today. She underwent recent PSG split study which demonstrated moderate sleep apnea, AHI 21, with no significant nocturnal hypoxemia. She reports using her CPAP machine every day and has 100% compliance over 4 hours for the last 30 days, with her events per hour now down to 0.3. She reports issues with mask leak using her current nasal mask, which she finds most comfortable despite trying a mouth mask in the past. The nasal mask causes some sores, though less severe than a previous nasal device that caused dryness and sores. The patient has a chin strap but has only used it once. A pulmonary function test from April was normal. She has an albuterol inhaler prescribed which she uses as needed, although denies any respiratory symptoms at this time. A prior chest x-ray showed her right hemidiaphragm elevation lung, she can not recall a prior CXR with this finding. She denies any significant trauma or surgeries, but does recall a fall a few years ago. She also reports falling out of bed multiple times, which she attributes to acting out dreams associated with sleep apnea, necessitating the use of a bed railing. Pulmonology History - Diagnosis of moderate obstructive sleep apnea with a baseline AHI of 21. - Treated with CPAP, with current machine used for approximately 2-3 years. - Pulmonary function test in April was normal. - Chest x-ray finding of an elevated right hemidiaphragm - No personal history of asthma. Results - CPAP Download (last 30 days): Reports show usage of more than 4 hours 100% of the time. The Apnea-Hypopnea Index (AHI) is 0.3 events per hour. Some mask leak is noted. - Sleep Study (diagnostic): Confirmed moderate sleep apnea with an AHI of 21 events per hour. Titration portion recommended a pressure of 10 cm H2O. Average oxygen saturation was 93%. - Pulmonary Function Test (April at [facility]): Essentially normal. Lung volumes and body's ability to use oxygen were normal at 82%. - Echocardiogram (2021): Revealed moderate to severe tricuspid regurgitation and a dilated right atrium. Pulmonary artery pressure was not elevated. - Chest X-ray (recent): Showed an elevated right hemidiaphragm. [facility] Social History Patient Tobacco Use Status: Never used Tobacco Review of Systems Narrative Const Denies chills, Denies excessive sweating, Denies fever(s), Denies headache(s) and Denies night sweats Eyes Denies dry eyes, Denies irritation and Denies itchy eyes ENT Reports Normal hearing present, Denies headache(s), Denies nasal congestion, Denies nasal discharge, Denies post nasal drip and Denies sore throat Card Denies chest pain, Denies chest pain at rest, Denies chest pain with activity, Denies claudication, Denies leg edema, Denies orthopnea and Denies paroxysmal nocturnal dyspnea Resp Denies chest congestion, Denies cough, Denies excessive phlegm production, Denies pain on inspiration, Denies pain with cough, Denies stridor and Denies wheezing Musc Denies myalgias Neuro Reports Normal hearing present and Denies headache(s) Endo Denies excessive sweating Ambrosio/Lymph Denies lymphadenopathy Aller/Immun Denies itchy eyes, Denies seasonal rhinorrhea and Denies wheezing Physical Exam Exam Exam: Vital Signs: Last Vital Signs Pulse 103 H 11/20/25 09:56 BP 126/88 11/20/25 09:56 Pulse Ox 94 12/31/25 09:56 Oxygen Delivery Method Room Air 11/20/25 09:56 BMI result Body Mass Index 54.5 Const General: cooperative, healthy appearing, comfortable, no acute distress, well developed and alert Nutritional Appearance: obese Orientation/consciousness: patient oriented x3 Limitations: no limitations HEENT Head: Yes normal to inspection, Yes normocephalic and Yes atraumatic Ears: hearing grossly normal bilaterally and external ears normal Eyes General: appearance normal, both eyes and all related structures Eyelids: Yes eyelids normal Sclerae: sclerae normal EOM: EOMs intact bilaterally Neck Neck: Yes normal visual inspection and Yes no lymphadenopathy Lymphatic: no lymphadenopathy noted Chest Chest palpation & inspection: normal inspection of the chest Resp Other: diminished lung sounds Effort & Inspection: normal respiratory effort, able to speak in complete sentences, no audible wheezes, no cough, no stridor, not tachypneic, no tripod positioning and no use of accessory muscles Cardio Jugular venous distension: no JVD Rate: regular rate Rhythm: regular rhythm Skin Other: warm, dry General skin exam: no rashes or lesions noted Neuro General: patient oriented x3 Cranial nerves: Yes Normal hearing present Cognition (Neuro): normal cognition Gait exam (Neuro): Normal gait present Extrem General: Yes normal to inspection, Yes capillary refill normal, Yes no clubbing, cyanosis or edema and Yes no pedal edema Psych Appearance: grossly normal and well kempt Speech and movement: Normal speech and movement present and Clear speech present Affect: normal affect Attitude: cooperative Thought process: Normal thought process present Thought content: Normal thought content present Insight: Good insight present (Psych) Judgement: Good judgement present (Psych) Assessment & Plan Assessment & Plan (1) Obstructive sleep apnea: Code(s): G47.33 - Obstructive sleep apnea (adult) (pediatric) Category: Medical (2) Elevated hemidiaphragm: Code(s): J98.6 - Disorders of diaphragm Category: Medical (3) Pulmonary hypertension: Code(s): I27.20 - Pulmonary hypertension, unspecified Category: Medical Plan The patient's sleep apnea is well-controlled with CPAP therapy, as evidenced by an AHI of 0.3. However, she experiences mask leak and residual daytime tiredness. The sleep study titration recommended a pressure of 10 cm H2O, while her current setting is 11. The CPAP pressure will be changed remotely from 11 to 10. The patient was advised to consider using her chin strap to mitigate air leakage. The patient has an elevated right hemidiaphragm noted on chest x-ray, but her recent pulmonary function tests were normal, indicating no significant restrictive deficit. Surgical intervention is therefore not indicated at this time. To further evaluate the etiology, a sniff test will be ordered to assess phrenic nerve function. Previous chest x-rays from [facility] will be requested to determine the chronicity of this finding. The patient has known moderate to severe tricuspid regurgitation and right atrial dilation, with a history of pulmonary hypertension noted in her chart. Her last echocardiogram in 2021 did not show elevated pulmonary artery pressures. She has been advised to follow up with cardiology, as she is due for a repeat evaluation and likely a repeat echocardiogram. Records from her prior cardiac catheterization at [facility] will be requested to clarify her pulmonary pressure status. We will follow up in the office in three months. All questions were answered and patient is in agreement of plan. Patient Instructions - Your CPAP pressure setting will be changed from 11 down to 10. This change will be sent to your machine automatically and should take effect within the next day or two. - To reduce air leaking from your mask, please try using the chin strap you have at home. - We will be scheduling a special x-ray called a sniff test to look at how the muscle under your lungs is working. You will get a call to schedule this. - Please make an appointment to see your heart doctor (foil spinner) for a follow-up on your heart valve condition. - Continue to use your albuterol inhaler only if you feel you need it for your breathing. - Your next follow-up appointment in this office will be in three months, around January. - If you have any issues with the new CPAP pressure or your breathing, please call our office. Orders: Orders FL Sniff Test Today J98.6 - Disorders of diaphragm Coding Level of Care Code Est Pt Level 4 (96558) Add On Problem Visit Only Diagnoses Obstructive sleep apnea G47.33 Elevated hemidiaphragm J98.6 Pulmonary hypertension I27.20
[2025-11-20 09:56] VITALS: BP 126/88; PULSE 103; O2SAT 94; BMI 54.5
--- OUTSIDE RECORDS SUMMARY | 2025-11-20 10:30 | XMS_ITS | Clinical Summary ---
Author Organization [address] Address [address] [place] [phone] Phone Care Team Providers Care Nuclear Medicine Tech Name Role Phone Santiago Love Primary Care Provider [phone] Allergies Active Allergy Reactions Criticality Noted Date [...] propionate (FLONASE) 50 mcg/actuation nasal spray 1 Hana by Nasal route daily. 2 Active meclizine [...] Diagnosed Date Morbid obesity with BMI of 50.0-59.9, adult 06/21 Osteopenia 04/01/2022 Depression with anxiety 03/11/2020 Assessment [...] gabapentin, Lyrica at this moment Pulmonary hypertension 08/09/2014 Overview (08/23/2024): Last Assessment & Plan: Followed by Dr. Pickering with [facility]. Continue Lasix at current dose. Continue [...] Encounters Date Type Department Care Team Description 10/22/2025 Telephone Adult Medicine [address] [id number] Iveth Izquierdo PA from Last 3 Months Immunizations Immunization Administration [...] Date Site/Laterality Comments GASTRIC BYPASS 11/21/2004 PROCEDURE: TN GASTRIC RSTCV W/BYP W/SM INT RCNSTJ LIMIT ABSRPJ; COMMENT: gastric bypass SECTION 11/21/1981 PROCEDURE: HISTORICAL APPENDECTOMY 11/21/1979 PROCEDURE: HISTORICAL APPENDECTOMY OTHER SURGICAL HISTORY PROCEDURE: TN DILATION & CURETTAGE DX&/THER NONOBSTETRIC; COMMENT: x 2 BREAST LUMPECTOMY PROCEDURE: HISTORICAL BREAST LUMPECTOMY; COMMENT: left breast (); benign CHOLECYSTECTOMY PROCEDURE: HISTORICAL CHOLECYSTECTOMY COLONOSCOPY 02/16/2024 PROCEDURE: HISTORICAL COLONOSCOPY; COMMENT: muslu 1 polyp 5 yrs Medical History Medical History Date Comments Heart murmur DX:Heart murmur; COMMENT: [facility] Cardiology Vitamin deficiency DX:Vitamin de ficiency Morbid obesity with BMI of 5 0.0-59.9, adult (CMS/HCC V24, CMS/HCC V28) 07/08/2014 DX:Morbid obesity wit h BMI of 50.0-59.9, adult ([facility]) Tricuspid valve regurgitation 07/08/2014 DX [...] for your loved ones. For example, children's zoo caretaker or elderly care for an older adult? [...] 10:30 AM EST Office Visit Adult Medicine [address] [phone] Santiago Love [address] [phone] Health Maintenance Due Date Last Done Comments [...] PANEL Routine 07/10/2025 1:20 PM EDT Hypokalemia LIPID PANEL WITH REFLEX TO DIRECT LDL Routine 06/13/2025 10:23 AM EDT Mixed hyperlipidemia COLONOSCOPY Routine 02/16/2024 DXA BONE DENSITY STUDY [...] year. Mamm[facility]: [facility] at [address], [address] -------- FINAL REPORT -------- Dictated By: Charlie Alicea Dictated Date: 07/18/2025 15:53 ET Assigned Physician: Charlie Alicea Reviewed and Electronically Signed By: Charlie Alicea Signed Date: 07/18/2025 16:03 ET Workstation ID: [id number] Transcribed By: Self Edit Transcribed Date: 07/18/2025 [...] year. Mammography location: [facility] at [address], [address] -------- FINAL REPORT -------- Dictated By: Charlie Alicea Dictated Date: 07/18/2025 15:53 ET Assigned Physician: Charlie Alicea Reviewed and Electronically Signed By: Charlie Alicea Signed Date: 07/18/2025 16:03 ET Workstation ID: [id number] Transcribed By: Self Edit Transcribed Date: 07/18/2025 15:53 ET us Iveth Timbo [facility] BI PROCEDURES Final Result * Basic metabolic panel (07/10/2025 1:20 PM EDT) Sodium 137 133 - 145 mmol/L LAB CHEMISTRY METHOD 07/10/2025 5:43 PM EDT [facility] Potassium 3.9 3.5 - 5.5 mmol/L LAB CHEMISTRY METHOD 07/10/2025 5:43 PM EDT [facility] Chloride 104 96 - 110 mmol/L LAB CHEMISTRY METHOD 07/10/2025 5:43 PM EDT [facility] CO2 27 21 - 32 mmol/L LAB CHEMISTRY METHOD 07/10/2025 5:43 PM EDT [facility] Anion Gap 6 3 - 11 LAB CHEMISTRY METHOD 07/10/2025 5:43 PM EDT [facility] Glucose 97 70 - 100 mg/dL LAB CHEMISTRY METHOD 07/10/2025 5:43 PM EDT [facility] BUN 18 5 - 25 mg/dL LAB CHEMISTRY METHOD 07/10/2025 5:43 PM EDT [facility] Creatinine 0.71 0.50 - 1.10 mg/dL LAB CHEMISTRY METHOD 07/10/2025 5:43 PM EDT [facility] eGFR 92 >=60 mL/min/1. 73m2 LAB CHEMISTRY METHOD 07/10/2025 5:43 PM EDT [facility] Comment:Calculation based on the Chronic Kidney Disease Epidemiology Collaboration (CKD-EPI) equation refit without adjustment for race. BUN/Creatinine Ratio 25.4 LAB CHEMISTRY METHOD 07/10/2025 5:43 PM EDT [facility] Calcium 9.1 8.5 - 10.5 mg/dL LAB CHEMISTRY METHOD 07/10/2025 5:43 PM EDT [facility] Blood Venous blood specimen / Unknown Venipuncture / Unknown 07/10/2025 1:20 PM EDT 07/10/2025 1:20 PM EDT us Iveth Timbo [facility] LAB BLOOD ORDERABLES Final Resul t [facility] [address] [place] [address], * (ABNORMAL) Lipid panel with reflex to direct LDL (06/13/2025 10:23 AM EDT) Cholesterol 216(H) 0 - 200 mg/dL LAB CHEMISTRY METHOD 06/13/2025 1:44 PM EDT [facility] Triglycerides 191(H) 0 - 150 mg/dL LAB CHEMISTRY METHOD 06/13/2025 1:44 PM EDT [facility] HDL 76 >=40 mg/dL LAB CHEMISTRY METHOD 06/13/2025 1:44 PM EDT [facility] LDL Calculated 102(H) 0 - 100 mg/dL LAB CHEMISTRY METHOD 06/13/2025 1:44 PM EDT [facility] VLDL Cholesterol Fernando 38.2 mg/dL LAB CHEMISTRY METHOD 06/13/2025 1:44 PM EDT [facility] Non HDL Chol. (LDL+VLDL) 140 <145 mg/dL LAB CHEMISTRY METHOD 06/13/2025 1:44 PM EDT [facility] Chol/HDL Ratio 2.8 0.0 - 4.4 LAB CHEMISTRY METHOD 06/13/2025 1:44 PM EDT [facility] Blood Venous blood specimen / Unknown Venipuncture / Unknown 06/13/2025 10:23 AM EDT 06/13/2025 10:23 AM EDT us Iveth Timbo [facility] LAB BLOOD ORDERABLES Final Resul t [facility] [address] [place] [address], [place] [phone] * Colonoscopy (02/16/2024) Colonoscopy No interpretation , [...] (World Health Organization Fracture Risk Assessment) [facility] Department of Internal Medicine recommends [...] (World Health Organization Fracture Risk Assessment) [facility] Department of Internal Medicine recommendsusing [...] Final Result * Hepatitis C Screening (08/14/2014) [facility] Hepatitis C Screening Abstracted Historical Provider HEALTH MAINTENANCE Final Result from Last 3 Months or Most Recently Relevant to Health Maintenance Insurance [employer] MEDICARE MEDICAID - [place] Care Teams Nuclear Medicine Tech Relationship Specialty Start Date End Date Santiago Love PA [address] [place] [address] PCP - General Internal Medicine 05/20/21
== END 2025-11-20 10:24 | disposition home or self-care (01) ==
LOC: HO.HPSW 09:50
PROVIDERS: PCP Physician Assistant Medical; Visit Provider Nurse Practitioner Family
DX: G47.33 Obstructive sleep apnea (adult) (pediatric) (principal); J98.6 Disorders of diaphragm; I27.20 Pulmonary hypertension, unspecified
CPT/HCPCS: 99214; G2211

== ENCOUNTER → 2025-11-20 09:50 | Outpatient (BNVA) | payer MEDICARE, SELFPAY | PROVIDERS: PCP Physician Assistant Medical; Visit Provider Nurse Practitioner Family | DX: G47.33 Obstructive sleep apnea (adult) (pediatric) (principal); J98.6 Disorders of diaphragm; I27.20 Pulmonary hypertension, unspecified; Z99.89 Dependence on other enabling machines and devices | CPT/HCPCS: 99212 ==